=== PATIENT | female | born 1945 | race Caucasian/White ===

== ENCOUNTER 2019-06-23 06:55 | Observation (INO) ==
--- NOTE | 2019-06-08 09:30 | PAT Medication Instructions ---
Medication Instructions Date of Service June 08, 2019 Home Medications acetaminophen 325 mg capsule 650 mg PO Q6H PRN amlodipine 10 mg tablet 10 mg PO DAILY bisacodyl 10 mg rectal suppository 10 mg GA DAILY PRN ezetimibe 10 mg tablet 10 mg PO DAILY guaifenesin 600 mg tablet, extended release 12 hr 600 mg PO BID hydrochlorothiazide 12.5 mg capsule 12.5 mg PO DAILY hydrocortisone acetate 25 mg rectal suppository 25 mg GA QID PRN ipratropium-albuterol 0.5 mg-3 mg(2.5 mg base)/3 mL nebulization soln 3 ml INH QID ketoconazole 2 % shampoo 1 appln TOP .2 times weekly lanolin szkxmwz-yr-p.pet-ceres 1 appln TOP BID losartan 25 mg tablet 25 mg PO DAILY magnesium hydroxide 400 mg/5 mL oral suspension 30 ml PO DAILY PRN melatonin 3 mg capsule 3 mg PO HS PRN nystatin-triamcinolone 100,000 unit/g-0.1 % topical cream 1 appln TOP BID oxycodone 5 mg tablet 5 mg PO Q4H PRN sodium phosphates 19 gram-7 gram/118 mL enema 118 ml GA DAILY PRN atenolol 100 mg PO DAILY cholecalciferol (vitamin D3) 400 unit PO DAILY STOP taking 24 hours before surgery ketoconazole 2 % shampoo 1 appln TOP .2 times weekly lanolin wqqrwfw-xj-k.pet-ceres 1 appln TOP BID nystatin-triamcinolone 100,000 unit/g-0.1 % topical cream 1 appln TOP BID DO NOT take the morning of surgery bisacodyl 10 mg rectal suppository 10 mg GA DAILY PRN guaifenesin 600 mg tablet, extended release 12 hr 600 mg PO BID hydrochlorothiazide 12.5 mg capsule 12.5 mg PO DAILY hydrocortisone acetate 25 mg rectal suppository 25 mg GA QID PRN losartan 25 mg tablet 25 mg PO DAILY magnesium hydroxide 400 mg/5 mL oral suspension 30 ml PO DAILY PRN sodium phosphates 19 gram-7 gram/118 mL enema 118 ml GA DAILY PRN cholecalciferol (vitamin D3) 400 unit PO DAILY Take morning of surgery With a small sip of water, OTHERWISE NOTHING TO EAT OR DRINK AFTER MIDNIGHT: acetaminophen 325 mg capsule 650 mg PO Q6H PRN (if needed, may be taken up to four hours before surgery) amlodipine 10 mg tablet 10 mg PO DAILY ezetimibe 10 mg tablet 10 mg PO DAILY ipratropium-albuterol 0.5 mg-3 mg(2.5 mg base)/3 mL nebulization soln 3 ml INH QID oxycodone 5 mg tablet 5 mg PO Q4H PRN (if needed, may be taken up to four hours before surgery) atenolol 100 mg PO DAILY Take evening before surgery acetaminophen 325 mg capsule 650 mg PO Q6H PRN (if needed) bisacodyl 10 mg rectal suppository 10 mg GA DAILY PRN (if needed) guaifenesin 600 mg tablet, extended release 12 hr 600 mg PO BID ipratropium-albuterol 0.5 mg-3 mg(2.5 mg base)/3 mL nebulization soln 3 ml INH QID magnesium hydroxide 400 mg/5 mL oral suspension 30 ml PO DAILY PRN (if needed) melatonin 3 mg capsule 3 mg PO HS PRN (if needed) oxycodone 5 mg tablet 5 mg PO Q4H PRN (if needed) sodium phosphates 19 gram-7 gram/118 mL enema 118 ml GA DAILY PRN (if needed) Other Notes If you have any questions please call us at [phone] or [phone] or [phone] or [phone]
--- NOTE | 2019-06-08 13:27 | Anesthesiology Consultation ---
Date of Service June 08, 2019 Assessment & Plan (1) Encounter for pre-operative examination: Chart Review Chart Review: Acceptable Risk for Surgery and Patient NOT seen in Pre Admission Testing Consults Requested none History Surgery Operation Date: 06/23/19 07:00 Proposed Procedures p Gastrostomy Feeding Tube Insertion - Jef Irizarry MD Height/Weight Height: 5 ft 3 in Weight: 65.771 kg Allergies Allergy/AdvReac Type Severity Reaction Status Date / Time blueberry Allergy Unknown Verified 06/08/19 07:47 chocolate flavor Allergy Unknown Verified 06/08/19 07:47 strawberry Allergy Unknown Verified 06/08/19 07:47 tomato Allergy Unknown Verified 06/08/19 07:47 aspirin Allergy Rash Verified 06/08/19 07:47 codeine Allergy Rash Verified 06/08/19 07:47 morphine Allergy Nausea Verified 06/08/19 07:47 simvastatin Allergy Rash Verified 06/08/19 07:47 Medications Home Medications Medication Instructions Recorded Confirmed Last Taken acetaminophen 325 mg capsule 650 mg PO Q6H PRN cap 04/07/19 06/08/19 Unknown amlodipine 10 mg tablet 10 mg PO DAILY 04/07/19 06/08/19 Unknown bisacodyl 10 mg rectal suppository 10 mg CA DAILY PRN 04/07/19 06/08/19 Unknown ezetimibe 10 mg tablet 10 mg PO DAILY 04/07/19 06/08/19 Unknown guaifenesin 600 mg tablet, 600 mg PO BID 04/07/19 06/08/19 Unknown extended release 12 hr hydrochlorothiazide 12.5 mg capsule 12.5 mg PO DAILY 04/07/19 06/08/19 Unknown hydrocortisone acetate 25 mg 25 mg CA QID PRN ea 04/07/19 06/08/19 Unknown rectal suppository ipratropium-albuterol 0.5 mg-3 3 ml INH QID 04/07/19 06/08/19 Unknown mg(2.5 mg base)/3 mL nebulization soln ketoconazole 2 % shampoo 1 appln TOP .2 times weekly ml 04/07/19 06/08/19 Unknown lanolin widtsbi-ji-k.pet-ceres 1 appln TOP BID gm 04/07/19 06/08/19 Unknown losartan 25 mg tablet 25 mg PO DAILY 04/07/19 06/08/19 Unknown magnesium hydroxide 400 mg/5 mL 30 ml PO DAILY PRN ml 04/07/19 06/08/19 Unknown oral suspension melatonin 3 mg capsule 3 mg PO HS PRN 04/07/19 06/08/19 Unknown nystatin-triamcinolone 100,000 1 appln TOP BID 04/07/19 06/08/19 Unknown unit/g-0.1 % topical cream oxycodone 5 mg tablet 5 mg PO Q4H PRN tab 04/07/19 06/08/19 Unknown sodium phosphates 19 gram-7 118 ml CA DAILY PRN 04/07/19 06/08/19 Unknown gram/118 mL enema atenolol 100 mg PO DAILY 06/08/19 06/08/19 Unknown cholecalciferol (vitamin D3) 400 unit PO DAILY 06/08/19 06/08/19 Unknown [Vitamin D3] Past Medical History Medical History Atherosclerosis (Chronic) Of leg with intermittent claudication Atrial fibrillation (Chronic) post op atrial fib with runs of v tach per notes Chronic anticoagulation (Chronic) Chronic kidney disease (Chronic) Dyslipidemia (Chronic) Gout Hypertension (Chronic) Laryngeal cancer (Chronic) per note, will start chem and radiation [facility] resident [facility] Peripheral vascular disease (Chronic) Pseudoaneurysm (Chronic) Right lower abd; Psoriasis (Chronic) Past Family History Family History Mother , 82yo Stroke Hypertension Diabetes Father , 68yo Stroke Hypertension Diabetes Brother Cardiac disease Brother No problems noted. Brother No problems noted. Sister of unknown cause Sister Hypertension Diabetes Sister Hypertension Diabetes Son Suicide Son No problems noted. 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 H/O tracheostomy (Chronic) 03/09/19 #6 Shiloy inner cannula --- uncuffed per [facility] uses oxygen 3l/min H/O tubal ligation (Resolved) History of appendectomy (Resolved) History of excision of lesion (Resolved) Right breast - benign History of laryngoscopy (Resolved) Direct laryngoscopy, biopsy of mass, and excision of mass on 03/09/19 History of right-sided carotid endarterectomy (Resolved) Hx of cataract surgery (Resolved) Bilateral S/P femoral-popliteal bypass surgery (Resolved) Bilaterally x 3 or 4 times; S/P RANULFO (total abdominal hysterectomy) (Resolved) including partial vaginectomy Social History Smoking Status: Former smoker tobacco type: cigarettes Smoking cigarettes per day: Quit 20 yrs ago;1.5 PPD x 30 yrs Smoking End Date: quit 2001 Hx Alcohol Use: No Hx Substance Use: No substance use type: does not use Testing Laboratory Results Laboratory Tests 04/15/19 04/17/19 05/26/19 07:10 01:40 05:50 WBC 12.97 H Hgb 10.5 L Hct 32.5 L Plt Count 147 PT 23.6 H INR 2.5 H Sodium 137 Potassium 3.7 Chloride 105 Carbon Dioxide 21 BUN 17 Creatinine 1.31 H Glucose 106 H Electrocardiogram Date: 03/12/19 Findings: + NSR @ and + NSST changes Echocardiogram Date: 03/17/19 EF: 65 LV Function: normal
[~2019-06-23 06:55] MED LIST: CEFAZOLIN 2000MG 2,000 MG/15 ML SYR IV SCH; LR 15ML/HR IV SCH
[2019-06-23 07:42] LABS: INR 1.1 (0.9-1.1); Partial Thromboplastin Time 27.4 Seconds (21.0-31.0); Prothrombin Time 11.2 Seconds (9.0-12.0)
[2019-06-23] MEDS ORDERED: ATROPINE SULFATE 0.1 MG/ML 10ML SYR IV PRN (08:28)
[2019-06-23] MEDS ORDERED: ONDANSETRON INJ 2 MG/ML 2 ML VIAL IV PRN ×2 (08:28→10:54)
[2019-06-23] MEDS ORDERED: LABETALOL HCL IV 5 MG/ML 20ML IV PRN (08:28)
[2019-06-23] MEDS ORDERED: fentaNYL citrate 100 MCG/2 ML VIAL IV PRN (08:28)
[2019-06-23] MEDS ORDERED: fentaNYL citrate 100 MCG/2 ML VIAL ONE (08:48)
[2019-06-23] MEDS ORDERED: BUPIVACAINE 0.5 % 5 MG/1 ML MPF 30ML VIAL ONE (09:01)
[2019-06-23] MEDS ORDERED: BACITRACIN OINT 15 GM TUBE ONE (09:01)
[2019-06-23] MEDS ORDERED: LIDOCAINE HCL 1% 20 ML VIAL ONE (09:01)
[2019-06-23] MEDS ORDERED: HEPARIN 100 UNIT/ML 5ML FLUSH ONE (09:01)
[2019-06-23] MEDS ORDERED: CEFAZOLIN 2000MG 2,000 MG/15 ML SYR IV ONE (09:07)
--- NOTE | 2019-06-23 09:07 | History & Physical Bridge Note ---
Date of Service June 23, 2019 History & Physical Bridge Note I have examined the patient, reviewed the History & Physical and in the interval since the performance of the History & Physical I have noted the following changes of clinical significance: no changes noted
[2019-06-23] MEDS ORDERED: NEOSTIGMINE METHYLSULFATE 5 MG/5 ML SYR ONE (10:06)
[2019-06-23] MEDS ORDERED: PROPOFOL IV EMULSION 10 MG/ML 20 ML VIAL IV ONE (10:06)
[2019-06-23] MEDS ORDERED: PHENYLEPHRINE 100MCG/ML 5ML SYR ONE (10:06)
[2019-06-23] MEDS ORDERED: ONDANSETRON INJ 2 MG/ML 2 ML VIAL ONE (10:06)
[2019-06-23] MEDS ORDERED: GLYCOPYRROLATE 0.2 MG/ML VIAL ONE (10:06)
[2019-06-23] MEDS ORDERED: ROCURONIUM BROMIDE 10 MG/ML 5 ML VIAL ONE (10:06)
[2019-06-23] MEDS ORDERED: LIDOCAINE HCL 2% 2 ML VIAL/AMP(20MG/ML) INFIL ONE (10:06)
--- NOTE | 2019-06-23 10:48 | Post Operative Brief Note ---
Immediate Post Op Note v1 Date of Surgery June 23, 2019 Pre & Post Diagnosis Operation Date: 06/23/19 08:50 Pre-Op Diagnosis: Laryngeal Cancer Post-Op Diagnosis: Laryngeal Cancer I identified the patient and participated in the time-out.: Yes Procedure Operation Date: 06/23/19 08:50 Actual Procedures p Gastrostomy Feeding Tube Insertion,(Not Applicable) - Jef Irizarry MD s tunneled Port Insertion(Left internal jugular vein) - Jef Irizarry MD Surgeon Jef Irizarry MD Career Services Director FERNY Gil Estimated Blood Loss 10 Findings Consistent with Post-Op Diagnosis Fluids 600ml Specimens none Anesthesia Type General Complications none Disposition Accompanied Patient To Recovery: Yes Disposition: Recovery Room Overlapping Procedure I was immediately available: during the entire case.
[2019-06-23] MEDS ORDERED: HYDROmorphone INJ 0.5 MG/0.5 ML SYR IV PRN ×2 (10:58→15:30)
[2019-06-23] MEDS ORDERED: OXYCODONE/ACETAMINOPHEN 5mg/325mg TAB PO PRN (10:58)
[2019-06-23] MEDS ORDERED: SODIUM CHLORIDE 0.9% 1000ML 1,000 ML IV SCH (11:00)
--- NOTE | 2019-06-23 11:45 | Anesthesiology Progress Note ---
Date of Service June 23, 2019 Anesthesia Post Procedure Vital Signs Vital Signs: Temp Pulse Pulse Resp BP Pulse Ox 06/23/19 11:40 84 15 121/81 97 06/23/19 11:30 85 19 129/71 92 06/23/19 11:20 86 19 133/64 95 06/23/19 11:12 36.0 C L 89 17 138/73 98 06/23/19 07:24 36.6 C 80 131/60 100 Pain Intensity Abdomen: Pain Intensity: 2 Transfer of Care Handoff Completed per policy Notes Mental Status: alert / awake / arousable Patient Amnestic to Procedure: Yes Nausea / Vomiting: adequately controlled Pain: adequately controlled Airway Patency, RR, SpO2: stable & adequate BP & HR: stable & adequate Hydration State: stable & adequate Anesthetic Complications: no major complications apparent
--- NOTE | 2019-06-23 12:08 | XRay Report ---
XR chest 1V portable HISTORY: Port Placement COMPARISON: None. FINDINGS: A left jugular Port-A-Cath terminates within the expected location of the proximal SVC. A t racheostomy tube appears in good position. The heart is normal in size. Emphysema and mild interstiti al thickening. Suspect trace bilateral pleural effusions. No pneumothorax. IMPRESSION: 1. Left jugular Port-A-Cath terminates at the proximal SVC. 2. No pneumothorax. 3. Tracheostomy tube appears in good position. 4. Emphysema and mild interstitial thickening. ACT 112: Negative or not required by law. Electronically signed by: Eliseo Shaikh M.D. 06/23/2019 12:07 PM
--- NOTE | 2019-06-23 12:37 | Operative Report ---
DATE OF OPERATION: 06/23/2019 PREOPERATIVE DIAGNOSIS: Laryngeal cancer. POSTOPERATIVE DIAGNOSIS: Laryngeal cancer. OPERATIVE PROCEDURE: Tunneled port catheter insertion in the left internal jugular vein, gastrostomy feeding tube insertion. SURGEON: Jef Irizarry MD. DIRECTOR PART: Stefanie Oquendo PA-C. ANESTHESIA: General. ESTIMATED BLOOD LOSS: About 10 mL. FINDINGS: Patent left internal jugular vein. COMPLICATIONS: None. INDICATIONS FOR THE PROCEDURE: This is a 74-year-old female who has a new diagnosis of laryngeal cancer. The patient is required to do the port insertion and gastrostomy feeding tube insertion. I did talk to the patient about the benefits, risks, and alternate procedure. I indicated the risks may include but not limited to such as bleeding, infection, blood clot, dysfunction of the catheter, injury to other organs. The patient understands and she signed informed consent, I answered all questions. DETAILS OF PROCEDURE: We brought the patient to the OR, put the patient in the supine position. The patient received SCD on bilateral legs to prevent DVT. Also, patient received 2 grams of Ancef IV for prophylactic antibiotic. The patient received general anesthesia without difficulty. The left-sided neck and left-sided upper chest and abdomen were prepped and draped in routine sterile fashion. After timeout, I used the ultrasound, located the left internal jugular vein. I used a 16 gauge needle to puncture the left internal jugular vein, easy blood returned, passed the wire and removed the needle. Then, we used fluoro to confirm the wire location in the superior vena cava, then I injected local anesthesia on the left side of the upper chest by using 1% lidocaine mixed with 0.5% Marcaine. Then, I made about a 2 cm incision on the left side of the upper chest with dissection in the subcutaneous layer and created a pouch. Hemostasis was obtained. Then, we passed the catheter through the left side of the upper chest to reach the left side of the neck. Then, we sized the catheter, connected to the port. Then, we passed the dilator and sheath through the wire. Then, we removed the wire, removed the dilator leaving the sheath in. Then, we passed the catheter through this sheath. Then, we removed the sheath and again we used fluoro to confirm the tip of the catheter located at the junction between the right atrium and superior vena cava, then using 2-0 Prolene fixed the port on the left side of the chest wall at 3 points. Hemostasis was obtained. I closed the subcutaneous layer incision by using 2-0 Vicryl continuous running, closed skin by using 4-0 Vicryl continuous running. Then, we used needle to puncture the port, easy blood returned and injected 10 mL of heparinized saline. Then, we put the dressing on. Then, we moved onto the abdomen. I made about 8 cm incision through the upper abdomen, midline incision, and reached the fascia, opened the fascia and opened the peritoneum getting in the abdomen without difficulty and then reached the base of the stomach. Then, using 2-0 Vicryl, put 2 strings on the stomach. Then, we made another incision on the left side of the upper abdomen and passed the 18-Anguillan Taylor catheter through the abdominal wall. At this moment, we used the Bovie to make a small opening on the stomach. Then we passed the Taylor catheter into the stomach and then we tied with 2 string sutures of 2-0 Vicryl, tied nicely, no tension, no leak. Then we inflated the Taylor catheter balloon, feeding tube balloon 10 mL with normal saline. Then I used 2-0 Prolene, sutured the stomach to the abdominal wall interruptedly x3 around the feeding tube. The feeding tube was set nicely, no tension. Hemostasis was obtained. Now closed the fascial layer by using #1 PDS continuous running, closed subcutaneous layer by using 2-0 Vicryl continuous running, closed skin by using staple. Then we put the dressing on. The patient tolerated the procedure well. All instrument, needle and sponge count were correct x2 at the end of the case. The patient was transferred to recovery room in stable condition. After the procedure, I did talk to the patient and family member about the OR finding and the procedure we did, they understand. The patient will stay in the hospital overnight. They agree. I attest to the content of the Intraoperative Record and any orders documented therein. Any exception s are noted below.
[2019-06-23] MEDS ORDERED: ALBUT/IPRATROP 3MG/0.5MG NEB 3 ML VIAL NEB PRN (15:26)
[2019-06-23] MEDS ORDERED: HydrALAZINE HCL 20 MG/ML VIAL IV PRN (15:28)
[2019-06-23] MEDS ORDERED: ACETAMINOPHEN 1,000 MG/100 ML VIAL IV PRN (15:30)
[2019-06-23] MEDS ORDERED: DiphenhydrAMINE HCL 50 MG/ML VIAL IV PRN (15:30)
--- NOTE | 2019-06-23 15:36 | Internal Medicine Consult Note ---
Date of Consultation June 23, 2019 Assessment & Plan (1) Malignant neoplasm of larynx: Pre-Op Diagnosis of Laryngeal Cancer Post-operative state -Operation Date: 06/23/[address] Irizarry for Gastrostomy Feeding Tube Insertion and tunneled Port Insertion(Left internal jugular vein) -currently is NPO -pain medications ordered as IV acetaminophen for pain or fever, IV dilaudid for severe pain -nebulizer treatments if shortness of breath or wheezing -PT/OT evaluations requested, case management discharge planning requested -General surgery is primary team in patient's discharge disposition; hospitalist medicine to follow as consult service Hypertension -holding off home oral blood pressure medications of losartan, atenolol, and HCTZ -switch to IV hydralazine prn if systolic blood pressure above 160 -depending on renal function, can switch to IV enalprilat -hold off ezetimibe for now Chronic Kidney Disease stage III -monitor renal function DVT prophylaxis: Lovenox History of Present Illness Reason for Consultation: "co-manage" a post-operative patient with cancer Requesting Physician: Dr. 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 On 06/23/2019, patient is s/p Gastrostomy Feeding Tube Insertion and tunneled Port Insertion(Left internal jugular vein). Patient also has tracheoostomy from prior. If it difficult for her to talk. But she is alert and able to phonate words softly. Patient is able to verbalize and pantomime some discomfort of the abdomen. Otherwise, she is not in acute distress. Patient reports allergy reaction of hives but does not know what are the triggers. Family History: hypertension of mother and father Allergies Allergy/AdvReac Type Severity Reaction Status Date / Time blueberry Allergy Unknown Verified 06/23/19 07:21 chocolate flavor Allergy Unknown Verified 06/23/19 07:21 strawberry Allergy Unknown Verified 06/23/19 07:21 tomato Allergy Unknown Verified 06/23/19 07:21 aspirin Allergy Rash Verified 06/23/19 07:21 codeine Allergy Rash Verified 06/23/19 07:21 morphine Allergy Nausea Verified 06/23/19 07:21 simvastatin Allergy Rash Verified 06/23/19 07:21 Home Medications Home Medications Medication Instructions Recorded Confirmed Type acetaminophen 325 mg capsule 650 mg PO Q6H PRN cap 04/07/19 06/23/19 History amlodipine 10 mg tablet 10 mg PO DAILY 04/07/19 06/23/19 History bisacodyl 10 mg rectal suppository 10 mg PA DAILY PRN 04/07/19 06/23/19 History ezetimibe 10 mg tablet 10 mg PO DAILY 04/07/19 06/23/19 History guaifenesin 600 mg tablet, 600 mg PO BID 04/07/19 06/23/19 History extended release 12 hr hydrochlorothiazide 12.5 mg capsule 12.5 mg PO DAILY 04/07/19 06/23/19 History ipratropium 0.5 mg-albuterol 3 mg 3 ml INH Q2H PRN 04/07/19 06/23/19 History (2.5 mg base)/3 mL nebulization soln ketoconazole 2 % shampoo 1 appln TOP .2 times weekly ml 04/07/19 06/23/19 History losartan 25 mg tablet 25 mg PO DAILY 04/07/19 06/23/19 History magnesium hydroxide 400 mg/5 mL 30 ml PO DAILY PRN ml 04/07/19 06/23/19 History oral suspension melatonin 3 mg capsule 3 mg PO HS 04/07/19 06/23/19 History oxycodone 5 mg tablet 5 mg PO Q4H PRN tab 04/07/19 06/23/19 History atenolol 100 mg PO DAILY 06/08/19 06/23/19 History cholecalciferol (vitamin D3) 400 unit PO DAILY 06/08/19 06/23/19 History [Vitamin D3] ipratropium-albuterol 3 ml INHALATION QID 06/23/19 06/23/19 History phenyleph-min oil-petrolatum 1 applic PA [facility] PRN 06/23/19 06/23/19 History [Preparation H] Patient History Medical History Atherosclerosis (Chronic) Of leg with intermittent claudication Atrial fibrillation (Chronic) post op atrial fib with runs of v tach per notes Chronic anticoagulation (Chronic) Chronic kidney disease (Chronic) Dyslipidemia (Chronic) Gout Hypertension (Chronic) Laryngeal cancer (Chronic) per note, will start chem and radiation [facility] resident [facility] Peripheral vascular disease (Chronic) Pseudoaneurysm (Chronic) Right lower abd; Psoriasis (Chronic) Surgical History 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 H/O tracheostomy (Chronic) 03/09/19 #6 Shiloy inner cannula --- uncuffed per residential uses oxygen 3l/min H/O tubal ligation (Resolved) History of appendectomy (Resolved) History of excision of lesion (Resolved) Right breast - benign History of laryngoscopy (Resolved) Direct laryngoscopy, biopsy of mass, and excision of mass on 03/09/19 History of right-sided carotid endarterectomy (Resolved) Hx of cataract surgery (Resolved) Bilateral S/P femoral-popliteal bypass surgery (Resolved) Bilaterally x 3 or 4 times; S/P RANULFO (total abdominal hysterectomy) (Resolved) including partial vaginectomy Family History Mother , 82yo Stroke Hypertension Diabetes Father , 68yo Stroke Hypertension Diabetes Brother Cardiac disease Brother No problems noted. Brother No problems noted. Sister of unknown cause Sister Hypertension Diabetes Sister Hypertension Diabetes Son Suicide Son No problems noted. Daughter Unknown family medical history Daughter MVA (motor vehicle accident) Social History (Updated 04/07/19 @ 14:13 by Татьяна Anthony RN) Preferred Language: Divehi Communication Ability: Impaired Visual Impairment: No Limitations Hearing Ability: Normal Motor Vehicle Light Assembler Required: No Beliefs That Will Affect Care: None marital status: Current Living Situation: Personal Care Facility Current Living Situation Comment: [facility] current occupational status: retired current occupation: Housewife; Other Information That Helps Us Care for You: No Feels Safe at Home: Yes Safety Concerns: Feels Safe At This Time Smoking Status: Former smoker Tobacco Type: cigarettes ; Cigarettes Per Day: Quit 20 yrs ago;1.5 PPD x 30 yrs ; Smoking End Date: quit 2001 ; Second Hand Exposure: No ; Tobacco Cessation Education Requested by Patient: No Hx Alcohol Use: No Hx Substance Use: No caffeine: No during the past year weight has: remained stable Review of Systems Review of Systems: All systems reviewed & are unremarkable except as noted in HPI & below Physical Exam Constitutional: cooperative Eyes: PERRL, conjunctivae normal, anicteric sclerae EOM intact bilaterally ENMT: external ear and nose normal, oropharynx normal Neck: has tracheostomy Respiratory: normal respiratory effort Cardiovascular: Rate/Rhythm: regular rate and regular rhythm Chest (Breasts): Chest: + vascular access device or port Gastrointestinal (Abdomen): has dressing over abdomen Neurologic: PERRL, EOMI, accommodation nl, no face palsy, no dysarthria Psychiatric: Orientation: alert and cooperative Results & Data Vital Signs (Past 12 Hours) Vital Signs Temp Pulse Pulse Resp BP Pulse Ox 06/23/19 14:16 36.7 C 87 18 139/64 99 06/23/19 13:29 88 18 120/67 100 06/23/19 12:55 36.5 C 83 16 147/71 H 100 06/23/19 12:25 36.9 C 75 12 130/71 100 06/23/19 12:00 80 19 140/81 100 06/23/19 11:50 36.2 C L 75 20 152/56 H 100 06/23/19 11:40 84 15 121/81 97 06/23/19 11:30 85 19 129/71 92 06/23/19 11:20 86 19 133/64 95 06/23/19 11:12 36.0 C L 89 17 138/73 98 06/23/19 07:24 36.6 C 80 131/60 100
[2019-06-23] MEDS ORDERED: bisacodyL 10 MG SUPP PR PRN (15:45)
[2019-06-23 15:51] LABS: Creatinine Clr Calc Pharmacy 33.1 ml/min; Est GFR (African American) 43.9; Est GFR (Non-African American) 37.9
[2019-06-23] MEDS: LACTATED RINGER'S 1,000 ML IV SCH (16:08)
[2019-06-23] MEDS ORDERED: ENOXAPARIN INJ 40 MG/0.4 ML SYR SQ SCH (16:30)
[2019-06-23] MEDS: CEFAZOLIN 1000MG 1,000 MG/7.5 ML SYR IV SCH (18:02)
[2019-06-23] MEDS: ALBUT/IPRATROP 3MG/0.5MG NEB 3 ML VIAL NEB SCH (19:24)
[2019-06-24] MEDS: CEFAZOLIN 1000MG 1,000 MG/7.5 ML SYR IV SCH ×3 (00:11→12:09)
[2019-06-24] MEDS: LACTATED RINGER'S 1,000 ML IV SCH ×2 (00:12→04:32)
[2019-06-24 06:33] LABS: Basophils # (auto) 0.01 K/uL (0-0.2); Basophils % (auto) 0.1 %; Eosinophils % (auto) 9.8 %; Hemoglobin 11.7 g/dL (12.0-16.0); Immature Granulocytes # (auto) 0.02 K/uL (0.00-0.02); Immature Granulocytes % (auto) 0.2 %; Lymphocytes # (auto) 0.57 K/uL (1.2-3.4); Lymphocytes % (auto) 5.1 %; Mean Corpuscular Hemoglobin 32.1 pg (25-34); Mean Corpuscular Hgb Conc 33.4 g/dL (32-36); Mean Corpuscular Volume 95.9 fL (80-100); Mean Platelet Volume 9.4 fL (7.4-10.4); Monocytes # (auto) 0.63 K/uL (0.11-0.59); Monocytes % (auto) 5.6 %; Neutrophils # (auto) 8.84 K/uL (1.4-6.5); Neutrophils % (auto) 79.2 %; Platelet Count 143 K/uL (130-400); RDW Coefficient of Variation 13.7 % (11.5-14.5); RDW Standard Deviation 48.3 fL (36.4-46.3); Red Blood Count 3.65 M/uL (4.2-5.4); White Blood Count 11.17 K/uL (4.8-10.8)
[2019-06-24 07:02] LABS: Albumin Level 2.9 gm/dl (3.4-5.0); BUN Creatinine Ratio 14.8 (10-20); Calcium 9.3 mg/dl (8.5-10.1); Creatinine Clr Calc Pharmacy 37.5 ml/min; Potassium 3.7 mmol/L (3.5-5.1)
[2019-06-24 07:04] LABS: Albumin Globulin Ratio 0.7 (0.9-2); Bilirubin,Total 0.4 mg/dl (0.2-1); Globulin 4.4 gm/dl (2.5-4.0); Total Protein 7.3 gm/dl (6.4-8.2)
[2019-06-24] MEDS: ALBUT/IPRATROP 3MG/0.5MG NEB 3 ML VIAL NEB SCH ×2 (07:11→11:21)
--- NOTE | 2019-06-24 09:02 | Hospitalist Progress Note ---
Date of Service June 24, 2019 Assessment & Plan (1) Malignant neoplasm of larynx: Pre-Op Diagnosis of Laryngeal Cancer Post-operative state Presence of Tracheostomy -Operation Date: 06/23/[address] Irizarry for Gastrostomy Feeding Tube Insertion and tunneled Port Insertion(Left internal jugular vein) -pain medications ordered as IV acetaminophen for pain or fever, IV dilaudid for severe pain -nebulizer treatments if shortness of breath or wheezing -PT/OT evaluations requested, case management discharge planning requested -General surgery is primary team in patient's discharge disposition; hospitalist medicine to follow as consult service -06/24/18: Patient seen and examined this AM. Patient had food brought to bedside. She reported that she had not eaten dinner. Discussed with patient and nurse at bedside that if she tolerates oral meals, then medications can be transitioned to oral instead of IV. Patient reports some abdominal pain when she coughs. She reports not passing flatus yet, no bowel movements yet. She reports she has been able to urinate. No other issues on review of systems. Hospitalist also discussed with case management to assist general surgery service with discharge planning needs. healthcare advisory services manager notes that patient is originally from [facility] Hypertension -holding off home oral blood pressure medications of losartan, atenolol, and HCTZ -switch to IV hydralazine prn if systolic blood pressure above 160 -depending on renal function, can switch to IV enalprilat -hold off ezetimibe for now -can switch to oral medications if tolerating diet Chronic Kidney Disease stage III -monitor renal function DVT prophylaxis: Lovenox Subjective Patient seen and examined this AM. Patient had food brought to bedside. She reported that she had not eaten dinner. Discussed with patient and nurse at bedside that if she tolerates oral meals, then medications can be transitioned to oral instead of IV. Patient reports some abdominal pain when she coughs. She reports not passing flatus yet, no bowel movements yet. She reports she has been able to urinate. No other issues on review of systems. Hospitalist also discussed with case management to assist general surgery service with discharge planning needs. healthcare advisory services manager notes that patient is originally from [facility]. Review of Systems Review of Systems: All systems reviewed & are unremarkable except as noted in HPI & below Physical Exam Constitutional: cooperative Eyes: PERRL, conjunctivae normal, anicteric sclerae EOM intact bilaterally ENMT: external ear and nose normal, oropharynx normal Neck: oxygen via tracheostomy Respiratory: normal respiratory effort Cardiovascular: Rate/Rhythm: regular rate and regular rhythm Chest (Breasts): Chest: + vascular access device or port Musculoskeletal: Head/Neck/Chest: normocephalic and head atraumatic Neurologic: PERRL, EOMI, accommodation nl, no face palsy, no dysarthria Psychiatric: Orientation: alert and cooperative Results & Data Vital Signs (Past 12 Hours) Vital Signs Temp Pulse Pulse Resp BP Pulse Ox 06/24/19 07:27 36.9 C 91 H 18 135/70 94 06/24/19 07:11 73 18 97 06/24/19 04:00 37.4 C 92 H 20 144/69 H 96 06/24/19 00:05 37.3 C 88 18 117/67 96
[2019-06-24 11:33] VITALS: O2SAT 98
[2019-06-24 12:06] VITALS: BP 131/61; TEMP 98.8
--- NOTE | 2019-06-24 12:25 | Surgery Progress Note ---
Date of Service doing fine, tolerated diet, good control incision pain, June 24, 2019 Assessment & Plan (1) Encounter for pre-operative examination: doing fine, [facility] 1 week [phone] (2) Malignant neoplasm of larynx: Physical Exam Constitutional: WD/WN, vitals as above Respiratory: normal respiratory effort, lungs clear to auscultation Cardiovascular: RRR, no murmur, no edema Gastrointestinal (Abdomen): Percussion/Palpation: abdomen soft mild tenderness at incision site, no rebound pain BS +, incision intact, Neurologic: awake Psychiatric: Orientation: alert and oriented x 3 Results & Data Vital Signs (Past 12 Hours) Vital Signs Temp Pulse Pulse Resp BP Pulse Ox 06/24/19 12:05 37.1 C 98 H 18 131/61 98 06/24/19 11:22 94 H 16 98 06/24/19 07:27 36.9 C 91 H 18 135/70 94 06/24/19 07:11 73 18 97 06/24/19 04:00 37.4 C 92 H 20 144/69 H 96 Laboratory Results Abnormal lab results 06/23/19 06/23/19 06/24/19 Range/Units 13:50 15:10 06:04 WBC 11.17 H (4.8-10.8) K/uL RBC 3.65 L (4.2-5.4) M/uL Hgb 11.7 L (12.0-16.0) g/dL Hct 35.0 L (37-47) % RDW Std Deviation 48.3 H (36.4-46.3) fL Neut # (Auto) 8.84 H (1.4-6.5) K/uL Lymph # (Auto) 0.57 L (1.2-3.4) K/uL [place] # (Auto) 0.63 H (0.11-0.59) K/uL Eos # (Auto) 1.10 H (0-0.5) K/uL Creatinine 1.37 H (0.6-1.2) mg/dl Glucose (70-99) mg/dl AST (15-37) U/L Alkaline Phosphatase (45-117) U/L Albumin (3.4-5.0) gm/dl Globulin (2.5-4.0) gm/dl Albumin/Globulin Ratio (0.9-2) Nasal Screen MRSA (PCR) Positive A (Negative) 06/24/19 Range/Units 06:04 WBC (4.8-10.8) K/uL RBC (4.2-5.4) M/uL Hgb (12.0-16.0) g/dL Hct (37-47) % RDW Std Deviation (36.4-46.3) fL Neut # (Auto) (1.4-6.5) K/uL Lymph # (Auto) (1.2-3.4) K/uL [place] # (Auto) (0.11-0.59) K/uL Eos # (Auto) (0-0.5) K/uL Creatinine 1.21 H (0.6-1.2) mg/dl Glucose 107 H (70-99) mg/dl AST 13 L (15-37) U/L Alkaline Phosphatase 44 L (45-117) U/L Albumin 2.9 L (3.4-5.0) gm/dl Globulin 4.4 H (2.5-4.0) gm/dl Albumin/Globulin Ratio 0.7 L (0.9-2) Nasal Screen MRSA (PCR) (Negative)
[2019-06-24 13:57] VITALS: PULSE 92
--- NOTE | 2019-06-25 02:49 | Discharge Summary ---
ADMITTING DIAGNOSIS: Laryngeal cancer. DISCHARGE DIAGNOSIS: Laryngeal cancer. OPERATION: Port insertion on the left internal jugular vein. Gastrostomy feeding tube insertion. SURGEON: Jef Irizarry MD DETAILS OF DISCHARGE SUMMARY: This is a 74-year-old female who has a new diagnosis of laryngeal cancer. The patient is required to do the port insertion and open gastrostomy feeding tube insertion. The patient went to have the surgery and the patient tolerated the surgery well and after procedure the patient was transferred to recovery room and later on transferred to regular floor. The patient is doing fine. This morning, the patient had a regular diet. The patient tolerated and no significant abdominal pain, no nausea, no vomiting. No leak from around the feeding tube. PHYSICAL EXAMINATION: VITAL SIGNS: Temperature is 37.1, heart rate 98, respiratory rate 18, blood pressure 131/61, O2 saturation 98% on room air. GENERAL: The patient is alert, awake, oriented x3. HEENT: Within normal limitation. NECK: Tracheostomy is working well. NEUROLOGIC: Exam intact. CHEST: Bilateral lung sounds clear. HEART: Normal S1, S2. No murmur. ABDOMEN: Soft. The feeding tube is intact. No leak around the feeding tube. All incisions intact. No drainage, no redness. Bowel sounds positive. EXTREMITIES: No edema. The patient wanted to go back to snf. I gave patient postop care instructions and also the patient's son is at bedside, they understand. I will follow up the patient in 1 week in my office. Also instructed that if the patient developed any severe abdominal pain, temperature, the patient should come back to hospital ER, they understand.
== END 2019-06-24 14:20 ==
LOC: ASU 06:55 → 3N 06:55

== ENCOUNTER 2019-08-05 08:52 | Inpatient (IN) ==
--- NOTE | 2019-08-03 08:42 | History & Physical Report ---
Date of Service August 03, 2019 date of surgery: 08-05-19 Assessment & Plan (1) Closed right ankle fracture: Further care discussed with patient and will proceed with ORIF right ankle bimalleolar fracture at [facility] on 08/05/19. Will return back to [facility] upon discharge from the hospital. remain in splint, RICE until surgery, continue NWB. Patient will have follow up appointment in our office two weeks post op for staple/suture removal and re-evaluation. Patient otherwise has no other questions or concerns. She will change her anticoagulation from coumadin to Lovenox until surgery time then bridge back to coumadin post operatively. History of Present Illness Chief Complaint: right ankle fracture Ms Palmer is a 74 year old female who complains of right ankle pain, She states that the symptoms have been acute traumatic and began on 07/29/2019. She indicates the injury occurred at [facility] after sustaining a fall. Currently the patient states that the symptoms are mild-moderate. The pain is described as aching and sometimes sharp. The symptoms occur continuously. The patient is experiencing pain in the following location: GLOBAL ANKLE on the right side. She rates her current pain as 5/10. PATIENT INDICATED THAT SHE FELL AT [facility], PATIENT WENT TO [facility] SAME DAY, PLACED IN SPLINT. PATIENT IS NWB IN POSTERIOR SPLINT. 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 Allergies Allergy/AdvReac Type Severity Reaction Status Date / Time aspirin Allergy Intermediate Rash Verified 08/03/19 08:03 codeine Allergy Intermediate Rash Verified 08/03/19 08:03 simvastatin Allergy Intermediate Rash Verified 08/03/19 08:03 morphine Allergy Mild Nausea Verified 08/03/19 08:03 blueberry Allergy Unknown Unknown Verified 08/03/19 08:03 strawberry Allergy Unknown Unknown Verified 08/03/19 08:03 chocolate flavor Allergy Unknown Verified 08/03/19 08:03 Home Medications Home Medications Medication Instructions Recorded Confirmed Type bisacodyl 10 mg rectal suppository 10 mg AL DAILY PRN 04/07/19 07/29/19 History ezetimibe 10 mg tablet 10 mg PO DAILY 04/07/19 07/29/19 History hydrochlorothiazide 12.5 mg capsule 12.5 mg PO DAILY 04/07/19 07/29/19 History ipratropium 0.5 mg-albuterol 3 mg 3 ml INH Q2H PRN 04/07/19 07/29/19 History (2.5 mg base)/3 mL nebulization soln ketoconazole 2 % shampoo 1 appln TOP .2 times weekly ml 04/07/19 07/29/19 History magnesium hydroxide 400 mg/5 mL 30 ml PO DAILY PRN ml 04/07/19 07/29/19 History oral suspension melatonin 3 mg capsule 3 mg PO HS 04/07/19 07/29/19 History oxycodone 5 mg tablet 5 mg PO Q4H PRN tab 04/07/19 07/29/19 History atenolol 100 mg PO DAILY 06/08/19 07/29/19 History cholecalciferol (vitamin D3) 400 unit PO DAILY 06/08/19 07/29/19 History [Vitamin D3] Preparation H 1 applic AL AMHS PRN 06/23/19 07/29/19 History acetaminophen 500 mg tablet 1,000 mg PO TID tab 07/06/19 07/29/19 History artifi.tears(hypromellose)(PF) 0.3 2 drops OP BID 07/06/19 07/29/19 History % eye drops desonide 0.05 % topical ointment 1 appln TOP BID PRN 07/06/19 07/29/19 History lanolin [id number]-yu-d.pet-ceres 1 appln TOP .Sat F 07/06/19 07/29/19 History gm nystatin-triamcinolone 100,000 1 appln TOP BID 07/06/19 07/29/19 History unit/g-0.1 % topical cream magnesium oxide 400 mg PO BID 07/20/19 07/29/19 History alum-mag hydroxide-simeth [Maalox 7.5 ml PO QID 07/29/19 08/03/19 History Maximum Strength] amlodipine 5 mg PO DAILY 07/29/19 08/03/19 History cefdinir 300 mg PO BID 10 Days #20 cap 07/29/19 08/03/19 Rx dextromethorphan-guaifenesin 10 ml PO QID 07/29/19 08/03/19 History ipratropium-albuterol 3 ml INHALATION QID 07/29/19 08/03/19 History warfarin 4 mg PO DAILY 07/29/19 08/03/19 History Past Med/Surg History Medical History Atherosclerosis (Chronic) Of leg with intermittent claudication Atrial fibrillation (Chronic) post op atrial fib with runs of v tach per notes Chronic anticoagulation (Chronic) Chronic kidney disease (Chronic) Dyslipidemia (Chronic) Gout Hypertension (Chronic) Laryngeal cancer (Chronic) per note, will start chem and radiation [facility] resident [facility] Peripheral vascular disease (Chronic) Pseudoaneurysm (Chronic) Right lower abd; Psoriasis (Chronic) Surgical History 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 H/O tracheostomy (Chronic) 03/09/19 #6 Shiloy inner cannula --- uncuffed per [place] [facility] uses oxygen 3l/min H/O tubal ligation (Resolved) History of appendectomy (Resolved) History of excision of lesion (Resolved) Right breast - benign History of laryngoscopy (Resolved) Direct laryngoscopy, biopsy of mass, and excision of mass on 03/09/19 History of right-sided carotid endarterectomy (Resolved) Hx of cataract surgery (Resolved) Bilateral S/P femoral-popliteal bypass surgery (Resolved) Bilaterally x 3 or 4 times; S/P RANULFO (total abdominal hysterectomy) (Resolved) including partial vaginectomy Family History Mother , 82yo Stroke Hypertension Diabetes Father , 68yo Stroke Hypertension Diabetes Brother Cardiac disease Brother No problems noted. Brother No problems noted. Sister of unknown cause Sister Hypertension Diabetes Sister Hypertension Diabetes Son Suicide Son No problems noted. Daughter Unknown family medical history Daughter MVA (motor vehicle accident) Social History Preferred Language: Panamanian Communication Ability: Effective Visual Impairment: No Limitations Hearing Ability: Normal Napping Machine Operator Required: No Beliefs That Will Affect Care: None marital status: Current Living Situation: Personal Care Facility Current Living Situation Comment: [facility] current occupational status: retired current occupation: Housewife; Feels Safe at Home: Yes Smoking Status: Former smoker Tobacco Type: cigarettes ; Cigarettes Per Day: Quit 20 yrs ago;1.5 PPD x 30 yrs ; Second Hand Exposure: No ; Hx Alcohol Use: No Hx Substance Use: No caffeine: No during the past year weight has: remained stable Review of Systems Review of Systems: All systems reviewed & are unremarkable except as noted in HPI & below Constitutional: no fever and no chills Respiratory: no cough Cardiovascular: no chest pain and no dyspnea Gastrointestinal: no abdominal pain, no nausea and no vomiting Musculoskeletal: as per Subjective / HPI Physical Exam Constitutional: WD/WN, vitals as above no acute distress Respiratory: normal respiratory effort, lungs clear to auscultation Cardiovascular: RRR, no murmur, no edema Gastrointestinal (Abdomen): normal bowel sounds, soft, nontender, no hepatosplenomegaly Musculoskeletal: Ankle: + ankle abnormal to inspection, + deformity, + ecchymosis (moderate ecchymosis globally) and + limited ROM of ankle (secondary to pain); no skin erythema and Pereira test negative Results & Data Diagnostic Findings XR ankle RT min 3V routine CLINICAL HISTORY: 74 years-old Female presenting with fall, right ankle pain. TECHNIQUE: Frontal, mortise, and lateral views of the right ankle were obtained. COMPARISON: None. FINDINGS: Suboptimal ankle mortise view. This limits evaluation. One half shaft width d isplacement of the distal fibular metaphyseal fracture, which extends from the posterior lateral cortex proximally to the anterior medial cortex distally. This is at the level of the syndesmosis. There is also a mildly diastatic predominantly transversely oriented medial malleolar fracture at the level of the tibial plafond. Underlying osteopenia. Ankle joint effusion suspected. Atherosclerosis. Mild diffuse edema with swelling most pronounced at the level of the ankle. IMPRESSION: Bimalleolar fracture with one half shaft width displacement at the distal fibular metaphyseal fracture. This likely has a pronation abduction stage III fracture pattern.
--- NOTE | 2019-08-03 15:11 | PAT Medication Instructions ---
Medication Instructions Date of Service August 03, 2019 Home Medications bisacodyl 10 mg rectal suppository 10 mg CA DAILY PRN ezetimibe 10 mg tablet 10 mg PO DAILY hydrochlorothiazide 12.5 mg capsule 12.5 mg PO DAILY ipratropium 0.5 mg-albuterol 3 mg (2.5 mg base)/3 mL nebulization soln 3 ml INH Q2H PRN ketoconazole 2 % shampoo 1 appln TOP 2XWK magnesium hydroxide 400 mg/5 mL oral suspension 30 ml PO DAILY PRN melatonin 3 mg capsule 3 mg PO HS oxycodone 5 mg tablet 5 mg PO Q4H PRN atenolol 100 mg PO DAILY cholecalciferol (vitamin D3) [Vitamin D3] 400 unit PO DAILY Preparation H 1 applic CA AMHS PRN acetaminophen 500 mg tablet 1,000 mg PO TID artifi.tears(hypromellose)(PF) 0.3 % eye drops 2 drops OP BID desonide 0.05 % topical ointment 1 appln TOP BID PRN lanolin [id number]-h.pet-ceres 1 appln TOP .Sat nystatin-triamcinolone 100,000 unit/g-0.1 % topical cream 1 appln TOP BID magnesium oxide 400 mg PO BID alum-mag hydroxide-simeth [Maalox Maximum Strength] 7.5 ml PO QID amlodipine 5 mg PO DAILY dextromethorphan-guaifenesin 10 ml PO QID ipratropium-albuterol 3 ml INHALATION QID warfarin 4 mg PO DAILY cefdinir 300 mg PO BID heparin flush(porcine)-0.9NaCl 1 unit IV UD sodium phosphates [Fleet Enema Extra] 118 ml CA DAILY PRN Continue as directed heparin flush(porcine)-0.9NaCl 1 unit IV UD ASK your prescriber and surgeon warfarin 4 mg PO DAILY (if still need instructions, please contact surgeon: Dr. Keenan at [phone]) STOP taking 24 hours before surgery ketoconazole 2 % shampoo 1 appln TOP 2XWK desonide 0.05 % topical ointment 1 appln TOP BID PRN lanolin [id number]-[id number]-c.pet-ceres 1 appln TOP .Sat nystatin-triamcinolone 100,000 unit/g-0.1 % topical cream 1 appln TOP BID DO NOT take the morning of surgery bisacodyl 10 mg rectal suppository 10 mg CA DAILY PRN hydrochlorothiazide 12.5 mg capsule 12.5 mg PO DAILY magnesium hydroxide 400 mg/5 mL oral suspension 30 ml PO DAILY PRN cholecalciferol (vitamin D3) [Vitamin D3] 400 unit PO DAILY Preparation H 1 applic CA AMHS PRN magnesium oxide 400 mg PO BID alum-mag hydroxide-simeth [Maalox Maximum Strength] 7.5 ml PO QID sodium phosphates [Fleet Enema Extra] 118 ml CA DAILY PRN Take morning of surgery With a small sip of water, OTHERWISE NOTHING TO EAT OR DRINK AFTER MIDNIGHT: ezetimibe 10 mg tablet 10 mg PO DAILY ipratropium 0.5 mg-albuterol 3 mg (2.5 mg base)/3 mL nebulization soln 3 ml INH Q2H PRN (if needed) oxycodone 5 mg tablet 5 mg PO Q4H PRN (okay to take up to 4 hours prior to surgery if needed) atenolol 100 mg PO DAILY acetaminophen 500 mg tablet 1,000 mg PO TID (okay to take up to 4 hours prior to surgery if needed) artifi.tears(hypromellose)(PF) 0.3 % eye drops 2 drops OP BID amlodipine 5 mg PO DAILY ipratropium-albuterol 3 ml INHALATION QID cefdinir 300 mg PO BID Take evening before surgery bisacodyl 10 mg rectal suppository 10 mg CA DAILY PRN (if needed) ipratropium 0.5 mg-albuterol 3 mg (2.5 mg base)/3 mL nebulization soln 3 ml INH Q2H PRN (if needed) magnesium hydroxide 400 mg/5 mL oral suspension 30 ml PO DAILY PRN (if needed) melatonin 3 mg capsule 3 mg PO HS oxycodone 5 mg tablet 5 mg PO Q4H PRN (if needed) Preparation H 1 applic CA AMHS PRN (if needed) acetaminophen 500 mg tablet 1,000 mg PO TID artifi.tears(hypromellose)(PF) 0.3 % eye drops 2 drops OP BID magnesium oxide 400 mg PO BID alum-mag hydroxide-simeth [Maalox Maximum Strength] 7.5 ml PO QID dextromethorphan-guaifenesin 10 ml PO QID ipratropium-albuterol 3 ml INHALATION QID cefdinir 300 mg PO BID sodium phosphates [Fleet Enema Extra] 118 ml CA DAILY PRN (if needed) Other Notes If you have any questions please call us at [phone] or [phone] or [phone] or [phone]
--- NOTE | 2019-08-03 15:19 | Anesthesiology Consultation ---
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 Velázquez- for upcoming ORIF, can consider block + spinal or see can consider general with switching out to cuffed trach, or using flex ETT 6.0 like with gastrostomy tube placement for 06/2019 [facility] surgery. Per Lala Marie with OR, 6.0 cuffed trachs available (do not have time/availability to obtain trach sizes up/down). Per Dr. Velázquez, case was reviewed with Dr. Chang who will evaluate patient AM DOS to determine type of anesthetic agent. - Check coags AM DOS - Check CBC with diff AM DOS (recent chemo) Chart Review Chart Review: Acceptable Risk for Surgery and Patient seen in Pre Admission Testing Teaching & Discussion Pre-Anesthesia Teaching/Discussion Notes: Instructed NPO after midnight before surgery,except medications with 15 cc of water. Medication instructions provided according to the PAT guidelines. History Surgery Operation Date: 08/05/19 11:50 Proposed Procedures p Right Ankle Open Reduction Internal Fixation Bimalleolar Fracture - Vaughn Keenan, Height/Weight Height: 5 ft 3 in Weight: 64.41 kg (wheelchair bound (ankle fracture)) Allergies Allergy/AdvReac Type Severity Reaction Status Date / Time aspirin Allergy Intermediate Rash Verified 08/03/19 09:45 codeine Allergy Intermediate Rash Verified 08/03/19 09:45 simvastatin Allergy Intermediate Rash Verified 08/03/19 09:45 morphine Allergy Mild Nausea Verified 08/03/19 09:45 blueberry Allergy Unknown Unknown Verified 08/03/19 09:45 strawberry Allergy Unknown Unknown Verified 08/03/19 09:45 chocolate flavor Allergy Unknown Verified 08/03/19 09:45 Medications Home Medications Medication Instructions Recorded Confirmed Last Taken bisacodyl 10 mg rectal suppository 10 mg NE DAILY PRN 04/07/19 08/03/19 Unknown ezetimibe 10 mg tablet 10 mg PO DAILY 04/07/19 08/03/19 06/22/19 08:00 hydrochlorothiazide 12.5 mg capsule 12.5 mg PO DAILY 04/07/19 08/03/19 06/22/19 08:00 ipratropium 0.5 mg-albuterol 3 mg 3 ml INH Q2H PRN 04/07/19 08/03/19 06/18/19 15:00 (2.5 mg base)/3 mL nebulization soln ketoconazole 2 % shampoo 1 appln TOP 2XWK ml 04/07/19 08/03/19 06/19/19 20:00 magnesium hydroxide 400 mg/5 mL 30 ml PO DAILY PRN ml 04/07/19 08/03/19 Unknown oral suspension melatonin 3 mg capsule 3 mg PO HS 04/07/19 08/03/19 06/22/19 20:30 oxycodone 5 mg tablet 5 mg PO Q4H PRN tab 04/07/19 08/03/19 Unknown atenolol 100 mg PO DAILY 06/08/19 08/03/19 06/22/19 08:00 cholecalciferol (vitamin D3) 400 unit PO DAILY 06/08/19 08/03/19 06/22/19 08:00 [Vitamin D3] Preparation H 1 applic NE AMHS PRN 06/23/19 08/03/19 Unknown acetaminophen 500 mg tablet 1,000 mg PO TID tab 07/06/19 08/03/19 Unknown artifi.tears(hypromellose)(PF) 0.3 2 drops OP BID 07/06/19 08/03/19 Unknown % eye drops desonide 0.05 % topical ointment 1 appln TOP BID PRN 07/06/19 08/03/19 Unknown lanolin dmigqmx-nn-q.pet-ceres 1 appln TOP .Mon Tu wed Th F 07/06/19 08/03/19 Unknown gm nystatin-triamcinolone 100,000 1 appln TOP BID 07/06/19 08/03/19 Unknown unit/g-0.1 % topical cream magnesium oxide 400 mg PO BID 07/20/19 08/03/19 Unknown alum-mag hydroxide-simeth [Maalox 7.5 ml PO QID 07/29/19 08/03/19 Unknown Maximum Strength] amlodipine 5 mg PO DAILY 07/29/19 08/03/19 Unknown dextromethorphan-guaifenesin 10 ml PO QID 07/29/19 08/03/19 Unknown ipratropium-albuterol 3 ml INHALATION QID 07/29/19 08/03/19 Unknown warfarin 4 mg PO DAILY 07/29/19 08/03/19 Unknown cefdinir 300 mg PO BID 08/03/19 08/03/19 Unknown heparin flush(porcine)-0.9NaCl 1 unit IV UD 08/03/19 08/03/19 Unknown sodium phosphates [Fleet Enema 118 ml NE DAILY PRN 08/03/19 08/03/19 Unknown Extra] Past Medical History Medical History (Updated 08/04/19 @ 08:39 by Rosette Allen) Anemia hgb stable in the 10-11 range per chart review Aortic stenosis Mild aortic stenosis (TIMI 1.7cm2) per 03/2019 ECHO Atherosclerosis (Chronic) LE/intermittent claudication Atrial fibrillation (Chronic) hx post-op atrial fib with runs of v tach per records- on anticoagulation Carotid artery stenosis s/p Right CEA (2012)/follows with [facility] vascular Chronic kidney disease stage 3 Dyslipidemia (Chronic) Gout H/O tracheostomy (Chronic) 03/09/19 #6 Shiley inner cannula --- uncuffed per snf uses oxygen 3l/min Hypertension (Chronic) Laryngeal cancer (Chronic) last chemo treatment 08/03/19, last neck radiation scheduled for 08/12 [facility] PAD (peripheral artery disease) s/p S/P aortobifemoral 2000 (L-limb occluded) S/P R=>L fem-fem bypass x 2 Follows with [facility] vascular Peripheral vascular disease (Chronic) Pseudoaneurysm (Chronic) Right lower abd Psoriasis (Chronic) Exercise / Class Metabolic Activity III < 4 Walking/Shop/Light housework (until fall few weeks ago) Past Family History Family History Mother , 82yo Stroke Hypertension Diabetes Father , 68yo Stroke Hypertension Diabetes Brother Cardiac disease Brother No problems noted. Brother No problems noted. Sister of unknown cause Sister Hypertension Diabetes Sister Hypertension Diabetes Son Suicide Son No problems noted. 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 H/O tubal ligation (Resolved) History of appendectomy (Resolved) History of excision of lesion (Resolved) Right breast - benign History of gastrostomy tube placement Gastrostomy tube insertion, Left A-port insertion: 06/23/19: GA/Trach removed, good tract, 6.0 Flex ETT in without problems at [facility] History of laryngoscopy (Resolved) Direct laryngoscopy, biopsy of mass, and excision of mass on 03/09/19 History of right-sided carotid endarterectomy (Resolved) 2012 Hx of cataract surgery (Resolved) Bilateral S/P femoral-popliteal bypass surgery (Resolved) S/P aortobifemoral 2000 (L-limb occluded) S/P R=>L fem-fem bypass x 2 S/P RANULFO (total abdominal hysterectomy) (Resolved) including partial vaginectomy Past Anesthesia History No Hx of Anesthesia Complications and No Family Hx of Anesthesia Complications History of PONV No Hx of PONV and No Hx of Motion Sickness Social History Smoking Status: Former smoker tobacco type: cigarettes Smoking cigarettes per day: 1.5 ppd x 30 years Do You Dip or Chew Tobacco: No Smoking End Date: Quit 2001 Hx Alcohol Use: No (hx of whiskey use - none currently) Hx Substance Use: No substance use type: does not use Review of Systems Patient denies chest pain, shortness of breath, wheezing, palpitations. Physical Exam Vital Signs VITALS BP 102/63 P 85 TEMP 97.9 SP02 90-93% 3L continuous via trach RESP 20 PHYSICAL Full neck and c-spine range of motion. Full TMJ range of motion. TMD __ finger breaths Mallampati Score ___ Dentition: edentulous, upper dentures Lungs: clear throughout to auscultation Cardiac: regular rate and rhythm, no murmurs noted Spine: normal Carotid arteries: negative bruit Extremities: no edema Testing Laboratory Results 08/03/19 WBC 6.18 H/H 10.5/31.6 PLATELETS 184 SODIUM 135 POTASSIUM 3.8 CHLORIDE 94 CO2 30 BUN 21 CREATININE 1.1 GLUCOSE 106 07/29/19 PT 24.5 PTT 45.1 INR 2.6 UA negative bacteria, + epithelials, + leuk esterase URINE CULTURE probably skin raul, no sensitivities to follow Electrocardiogram Date: 07/29/19 NSR at 84bpm. RBBB. Minimal voltage criteria for LVH, may be normal variant. Chest X-Ray Date: 07/29/19 No change in appearance of the chest. Emphysema with asymmetric left lung interstitial thickening and mild opacity. Echocardiogram Date: 03/17/19 LVEF 65 to 69%. Moderately increased concentric LV wall thickness. Mild aortic stenosis (TIMI 1.7cm2). Mild TR.
[~2019-08-05 08:52] MED LIST changes: +BUPIVACAINE 0.5 % 5 MG/1 ML MPF 30ML VIAL ONE; +BUPIVACAINE 0.5 % 5 MG/1 ML PF 10ML VIAL ONE; +BUPIVACAINE/EPINEPHRINE 0.25% 1:200,000 30 ML VIAL ONE; -CEFAZOLIN 2000MG 2,000 MG/15 ML SYR IV SCH; +DEXAMETHASONE SOD INJ 4 MG/ML VIAL ONE
[2019-08-05] MEDS ORDERED: fentaNYL citrate 100 MCG/2 ML VIAL ONE (08:59)
[2019-08-05] MEDS ORDERED: MIDAZOLAM HCL 1 MG/ML 2ML VIAL ONE (08:59)
[2019-08-05 09:24] LABS: Basophils # (auto) 0.05 K/uL (0-0.2); Basophils % (auto) 0.9 %; Eosinophils # (auto) 0.43 K/uL (0-0.5); Eosinophils % (auto) 7.4 %; Hematocrit (blood only) 34.6 % (37-47); Hemoglobin 11.5 g/dL (12.0-16.0); Immature Granulocytes # (auto) 0.02 K/uL (0.00-0.02); Immature Granulocytes % (auto) 0.3 %; Lymphocytes # (auto) 0.43 K/uL (1.2-3.4); Lymphocytes % (auto) 7.4 %; Mean Corpuscular Hemoglobin 31.1 pg (25-34); Mean Corpuscular Volume 93.5 fL (80-100); Mean Platelet Volume 9.6 fL (7.4-10.4); Monocytes # (auto) 0.65 K/uL (0.11-0.59); Monocytes % (auto) 11.1 %; Neutrophils # (auto) 4.25 K/uL (1.4-6.5); Neutrophils % (auto) 72.9 %; Platelet Count 203 K/uL (130-400); RDW Coefficient of Variation 13.8 % (11.5-14.5); White Blood Count 5.83 K/uL (4.8-10.8)
[2019-08-05 09:33] LABS: INR 1.2 (0.9-1.1); Partial Thromboplastin Ratio 1.2; Partial Thromboplastin Time 32.8 Seconds (21.0-31.0); Prothrombin Time 12.3 Seconds (9.0-12.0)
--- NOTE | 2019-08-05 09:33 | History & Physical Bridge Note ---
Date of Service August 05, 2019 History & Physical Bridge Note I have examined the patient, reviewed the History & Physical and in the interval since the performance of the History & Physical I have noted the following changes of clinical significance: no changes noted
[2019-08-05 09:35] LABS: Mean Corpuscular Hgb Conc 33.2 g/dL (32-36)
[2019-08-05] MEDS ORDERED: CEFAZOLIN 2000MG 2,000 MG/15 ML SYR IV ONE (09:40)
[2019-08-05] MEDS ORDERED: ONDANSETRON INJ 2 MG/ML 2 ML VIAL IV PRN ×2 (11:27→14:02)
[2019-08-05] MEDS ORDERED: ATROPINE SULFATE 0.1 MG/ML 10ML SYR IV PRN (11:27)
[2019-08-05] MEDS ORDERED: ePHEDrine sulfate 50 MG/ML AMP IV PRN (11:27)
[2019-08-05] MEDS ORDERED: fentaNYL citrate 100 MCG/2 ML VIAL IV PRN (11:27)
--- NOTE | 2019-08-05 12:11 | Operative Report ---
Post Operative Report Pre & Post Diagnosis Operation Date: 08/05/19 11:50 Pre-Op Diagnosis: Bimalleolar Fracture of Right Ankle Post-Op Diagnosis: Bimalleolar Fracture of Right Ankle I identified the patient and participated in the time-out.: Yes Procedure Operation Date: 08/05/19 11:50 Actual Procedures p Right Ankle Open Reduction Internal Fixation Bimalleolar Fracture(Right) utilizing 7 hole one third tubular plate on the fibula to 4.0 cannulated screws on the medial malleolus- Vaughn Keenan DO Surgeon Vaughn Keenan DO Piano Tuner FERNY Magaña Estimated Blood Loss 15 Findings Consistent with Post-Op Diagnosis Patient presents with displaced fracture bimalleolar right ankle after having had falls presents for reduction internal fixation. Specimens None Anesthesia Type MAC Spinal Regional Complications none Disposition Accompanied Patient To Recovery: No Disposition: Recovery Room Indications Patient presents with displaced bimalleolar fracture of the right ankle for reduction internal fixation. Description of Procedure Initiation of spinal anesthesia the right lower extremity was subsequently prepped and draped a tourniquet was placed on the proximal calf and was not used after proper prepping draping the right lower extremity the incision over the region of the distal fibula was made dissection carried down through subcutaneous tissues with special attention paid to protect sural nerve and all superficial veins and nerves regenerate tract out of harm's way the periosteal sleeve which was torn was elevated off the lateral aspect of the the fibula the fracture was reduced in anatomic position there was market comminution at the fracture site with softened bone the fracture be maintained in anatomic position with a series of bone clamps a 7 hole one third tubular was contoured to fit the lateral fibula this was visualized under fluoroscopic guidance was noted to be in anatomic position subsequently the one third tubular plate was fitted to the lateral fibula utilizing standard AO technique with 7 cortical screws the fibular reduction was anatomic the medial clear space was in anatomic position no widening of the syndesmosis as it was stressed intraoperatively was noted no syndesmotic tear was noted subsequent incision over the region of the medial malleolus was performed 2 guidewires were placed after anatomic reduction of the medial malleolar fragment to 4.0 screws were placed into the medial malleolus told medially satisfactory line position was then noted to be in anatomic position both AP and lateral planes under fluoroscopic guidance the wound was irrigated with copious amounts of sterile saline solution subcu closed with 2-0 Vicryl skin was closed with 3-0 nylon a sterile compressive dressing was placed as well as a posterior splint patient are procedure well taken recovery in stable condition please note FERNY Magaña was necessary for prepping draping retraction wound closure of deep fascia subcu and skin was necessary for the case I attest to the content of the Intraoperative Record and any orders documented therein. Any exceptions are noted below.
--- NOTE | 2019-08-05 12:18 | Fluoroscopy Report ---
FL ankle RT 2V CLINICAL HISTORY: RT ORIF BIMALLEOLAR FX COMPARISON STUDY: Right ankle 07/19/2019. FLUOROSCOPY TIME: 48 seconds. FINDINGS: 2 fluoroscopic spot images of the right ankle demonstrate internal fixation of a bimalleola r fracture with a cortical plate and screws. The hardware appears intact. Alignment is near-anatomic. IMPRESSION: Fluoroscopy provided for internal fixation of a right ankle bimalleolar fracture. ACT 112: Negative or not required by law. Electronically signed by: Eliseo Shaikh M.D. 08/05/2019 12:17 PM
[2019-08-05] MEDS ORDERED: LIDOCAINE HCL 2% 2 ML VIAL/AMP(20MG/ML) INFIL ONE (13:08)
[2019-08-05] MEDS ORDERED: PROPOFOL IV EMULSION 10 MG/ML 20 ML VIAL IV ONE (13:08)
[2019-08-05] MEDS ORDERED: PHENYLEPHRINE 100MCG/ML 5ML SYR ONE (13:08)
[2019-08-05] MEDS ORDERED: METOCLOPRAMIDE HCL INJ 5 MG/ML 2 ML VIAL IV PRN (14:02)
[2019-08-05] MEDS ORDERED: MAGNESIUM HYDROXIDE SUSP 30 ML UDC PO PRN ×2 (14:02)
[2019-08-05] MEDS ORDERED: MINERAL OIL PR PRN (14:02)
[2019-08-05] MEDS ORDERED: PETROLATUM PR PRN (14:02)
[2019-08-05] MEDS ORDERED: HYDROmorphone INJ 0.5 MG/0.5 ML SYR IV PRN (14:02)
[2019-08-05] MEDS ORDERED: OXYCODONE HCL IR 5 MG TAB (IMMEDIATE RELEASE) PO PRN (14:02)
[2019-08-05] MEDS ORDERED: ALUMINUM/MAGNESIUM/SIMETH (MAALOX MAX) 30 ML UDC PO SCH (14:02)
[2019-08-05] MEDS ORDERED: NALOXONE HCL 0.4 MG/1 ML VIAL/CARP IV PRN (14:02)
[2019-08-05] MEDS ORDERED: bisacodyL 10 MG SUPP PR PRN ×2 (14:02)
[2019-08-05] MEDS ORDERED: DESONIDE CR 15 GM TUBE EXT PRN (14:02)
[2019-08-05] MEDS ORDERED: PHENYLEPHRINE PR PRN (14:02)
[2019-08-05] MEDS ORDERED: ALBUT/IPRATROP 3MG/0.5MG NEB 3 ML VIAL INH PRN (14:02)
[2019-08-05] MEDS ORDERED: SOD PHOSPHATE/SOD BIPHOSPHATE ENEMA 132 ML BTL PR PRN (14:02)
[2019-08-05] MEDS: SODIUM CHLORIDE 0.9% 1000ML 1,000 ML IV SCH (14:25)
--- NOTE | 2019-08-05 14:34 | Anesthesiology Progress Note ---
Date of Service August 05, 2019 Anesthesia Post Procedure Vital Signs Vital Signs: Temp Pulse Pulse Pulse Resp BP Pulse Ox 08/05/19 14:19 36.6 C 83 16 155/67 H 96 08/05/19 13:25 36.7 C 77 17 131/91 97 08/05/19 13:15 36.7 C 72 20 152/73 H 97 08/05/19 13:05 36.7 C 74 21 162/83 H 97 08/05/19 12:55 74 21 147/71 H 97 08/05/19 12:45 71 14 126/69 100 08/05/19 12:35 36.5 C 79 18 148/92 H 99 08/05/19 09:25 37.1 C 75 24 156/71 H 99 Pain Intensity Right Ankle: Pain Intensity: 5 Transfer of Care Handoff Completed per policy Notes Mental Status: alert / awake / arousable Patient Amnestic to Procedure: Yes Nausea / Vomiting: adequately controlled Pain: adequately controlled Airway Patency, RR, SpO2: stable & adequate BP & HR: stable & adequate Hydration State: stable & adequate Anesthetic Complications: no major complications apparent
--- NOTE | 2019-08-05 14:35 | Consultation ---
Date of Consultation August 05, 2019 Assessment & Plan (1) Post-operative state: s/p ORIF of R ankle today. Doing well post-operatively. Pain is low to none. She has a history of intolerance of narcotics and requests to avoid these for now. Despite oxycodone being listed on her outpatient medication list, she reports not taking this. She would prefer to stick with the scheduled Tylenol as ordered by Orthopedics with Tramadol for breakthrough for now and use additional narcotics only if pain is severe. PT/OT and wound management per Ortho (2) Bimalleolar ankle fracture: s/p ORIF R ankle today. 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 I have contacted Radiation Oncology who expects her in the morning to continue her daily treatments. This has been cleared with surgery, also. PRN Magic Swizzle. Heparin flushes ordered for port. G-tube site intact and looks good. She also reports that she was recently started back on a regular diet, and this is present in the facility records. She didn't report swallowing with confidence, however, so will ask that Speech Path evaluate her abilities while she is here. Nutrition also ordered as the patient was on dietary supplements at [facility]. (4) H/O tracheostomy: requires oxygen at baseline. (5) Anemia: Chronic, stable. Repeat CBC in am. (6) Aortic stenosis: has h/o this on echo. Denies preoperative symptoms. Euvolemic on exam. (7) Acute UTI: Diagnosed with this one week ago and on cefdinir for the past week. Denies UTI symptoms. Urine culture was negative and stopping cefdinir now. Of note, she is on perioperative Ancef. (8) DVT prophylaxis: Relative contraindication 2/2 post op state on R leg. Will recommend SCD to left leg now. Has h/o DVT in the past. Warfarin restarted. Daily INR DNR as discussed with the patient on admission. Dispo-cont hospitalization. Return [facility] once ok for dc by Surgery. Rayna Palomares DO [facility] Hospitalist History of Present Illness Requesting Physician: Dr. Keenan Reason for Consultation: medication management, diet orders Attending Physician: Vaughn Keenan DO History of Present Illness 74-year-old patient with right ankle pain after a trauma from a fall. She resides at [facility] and was seen in the ER at [facility] just after the injury on 07/29/2019. An x-ray of the right ankle was performed revealing a bimalleolar fracture with one half shaft width displacement at the distal fibular metaphyseal fracture. Orthopedics was consulted and recommended outpatient follow-up. They saw her on 08/03/19 in the office and recommended an ORIF which was performed today, 08/05/2019. 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 She is undergoing chemotherapy with cetuximab concurrent with radiation therapy. She is under the care of Radha Appiah from [facility] oncology who is records note that her last dose of chemotherapy should be next week. Per senior care records she has been advanced to a regular soft mechanical diet with thin consistency and PRN house shakes (diet supplement) as of 07/23/2019. She is doing well post-operatively. She denies pain, chest pain, difficulty breathing, abdominal pain, GI symptoms or other issues at this time. She reports restarting a regular diet in recent weeks and has been tolerating food "OK." Given cefdinir for the past week with negative urine culture. Denies fevers, chills, or UTI symptoms. Allergies Allergy/AdvReac Type Severity Reaction Status Date / Time aspirin Allergy Intermediate Rash Verified 08/05/19 09:14 codeine Allergy Intermediate Rash Verified 08/05/19 09:14 simvastatin Allergy Intermediate Rash Verified 08/05/19 09:14 morphine Allergy Mild Nausea Verified 08/05/19 09:14 blueberry Allergy Unknown Unknown Verified 08/05/19 09:14 strawberry Allergy Unknown Unknown Verified 08/05/19 09:14 Home Medications Home Medications Medication Instructions Recorded Confirmed Type bisacodyl 10 mg rectal suppository 10 mg IN DAILY PRN 04/07/19 08/05/19 History ezetimibe 10 mg tablet 10 mg PO DAILY 04/07/19 08/05/19 History hydrochlorothiazide 12.5 mg capsule 12.5 mg PO DAILY 04/07/19 08/05/19 History ipratropium 0.5 mg-albuterol 3 mg 3 ml INH Q2H PRN 04/07/19 08/05/19 History (2.5 mg base)/3 mL nebulization soln ketoconazole 2 % shampoo 1 appln TOP 2XWK ml 04/07/19 08/05/19 History magnesium hydroxide 400 mg/5 mL 30 ml PO DAILY PRN ml 04/07/19 08/05/19 History oral suspension melatonin 3 mg capsule 3 mg PO HS 04/07/19 08/05/19 History oxycodone 5 mg tablet 5 mg PO Q4H PRN tab 04/07/19 08/05/19 History atenolol 100 mg PO DAILY 06/08/19 08/05/19 History cholecalciferol (vitamin D3) 400 unit PO DAILY 06/08/19 08/05/19 History [Vitamin D3] Preparation H 1 applic IN [facility] PRN 06/23/19 08/05/19 History acetaminophen 500 mg tablet 1,000 mg PO TID tab 07/06/19 08/05/19 History artifi.tears(hypromellose)(PF) 0.3 2 drops OP BID 07/06/19 08/05/19 History % eye drops desonide 0.05 % topical ointment 1 appln TOP BID PRN 07/06/19 08/05/19 History lanolin celeuty-qd-s.pet-ceres 1 appln TOP .Sat Th F 07/06/19 08/05/19 History gm nystatin-triamcinolone 100,000 1 appln TOP BID 07/06/19 08/05/19 History unit/g-0.1 % topical cream magnesium oxide 400 mg PO BID 07/20/19 08/05/19 History alum-mag hydroxide-simeth [Maalox 7.5 ml PO QID 07/29/19 08/05/19 History Maximum Strength] ipratropium-albuterol 3 ml INHALATION QID 07/29/19 08/05/19 History warfarin 4 mg PO DAILY 07/29/19 08/05/19 History cefdinir 300 mg PO BID 08/03/19 08/05/19 History heparin flush(porcine)-0.9NaCl 1 unit IV UD 08/03/19 08/05/19 History sodium phosphates [Fleet Enema 118 ml IN DAILY PRN 08/03/19 08/05/19 History Extra] Patient History Medical History Anemia hgb stable in the 10-11 range per chart review Aortic stenosis Mild aortic stenosis (TIMI 1.7cm2) per 03/2019 ECHO Atherosclerosis (Chronic) LE/intermittent claudication Atrial fibrillation (Chronic) hx post-op atrial fib with runs of v tach per records- on anticoagulation Carotid artery stenosis s/p Right CEA (2012)/follows with [facility] vascular Chronic kidney disease stage 3 Dyslipidemia (Chronic) Gout H/O tracheostomy (Chronic) 03/09/19 #6 Shiley inner cannula --- uncuffed per senior care uses oxygen 3l/min Hypertension (Chronic) Laryngeal cancer (Chronic) last chemo treatment 08/03/19, last neck radiation scheduled for 08/12 [facility] PAD (peripheral artery disease) s/p S/P aortobifemoral 2000 (L-limb occluded) S/P R=>L fem-fem bypass x 2 Follows with [facility] vascular Peripheral vascular disease (Chronic) Pseudoaneurysm (Chronic) Right lower abd Psoriasis (Chronic) Surgical History 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 H/O tubal ligation (Resolved) History of appendectomy (Resolved) History of excision of lesion (Resolved) Right breast - benign History of gastrostomy tube placement Gastrostomy tube insertion, Left A-port insertion: 06/23/19: GA/Trach removed, good tract, 6.0 Flex ETT in without problems at [facility] History of laryngoscopy (Resolved) Direct laryngoscopy, biopsy of mass, and excision of mass on 03/09/19 History of right-sided carotid endarterectomy (Resolved) 2012 Hx of cataract surgery (Resolved) Bilateral S/P femoral-popliteal bypass surgery (Resolved) S/P aortobifemoral 2000 (L-limb occluded) S/P R=>L fem-fem bypass x 2 S/P RANULFO (total abdominal hysterectomy) (Resolved) including partial vaginectomy Family History Mother , 82yo Stroke Hypertension Diabetes Father , 68yo Stroke Hypertension Diabetes Brother Cardiac disease Brother No problems noted. Brother No problems noted. Sister of unknown cause Sister Hypertension Diabetes Sister Hypertension Diabetes Son Suicide Son No problems noted. Daughter Unknown family medical history Daughter MVA (motor vehicle accident) Social History Preferred Language: Niuean Communication Ability: Effective Visual Impairment: No Limitations Hearing Ability: Normal Production Line Operator Required: No Beliefs That Will Affect Care: None marital status: Current Living Situation: Personal Care Facility Current Living Situation Comment: [facility] current occupational status: retired current occupation: Housewife; Other Information That Helps Us Care for You: No Feels Safe at Home: Yes Smoking Status: Former smoker Tobacco Type: cigarettes ; Cigarettes Per Day: Quit 20 yrs ago;1.5 PPD x 30 yrs ; Do You Dip or Chew Tobacco: No ; Smoking End Date: Quit 2001 ; Second Hand Exposure: No ; Tobacco Cessation Education Requested by Patient: No Hx Alcohol Use: No Hx Substance Use: No caffeine: No during the past year weight has: remained stable Review of Systems Review of Systems: All systems reviewed & are unremarkable except as noted in HPI & below Physical Exam Physical Exam: CONSTITUTIONAL: WNWD, vitals as above, generally well- appearing EYES: normal conjunctivae, no scleral icterus ENT: oropharynx clear, MMM, no overt irritation, loss of papillae on tongue (smooth-appearing) NECK: trachea midline, tracheostomy and collar in place, some irritation on posterior neck from trach collar placement. Supplemental oxygen running. RESPIRATORY: clear to auscultation bilaterally, no crackles, rales or wheezes, normal respiratory effort CARDIOVASCULAR: regular rate and rhythm, S1 and 2 heard without murmurs, gallops or rubs, no JVD, no peripheral edema CHEST: +port GASTROINTESTINAL: normal bowel sounds, soft, nontender, +bulging nontender area on RLQ, multiple well-healed surgical scars in midabdomen. G tube in place without surrounding erythema or drainage. MUSCULOSKELETAL: limited as in post op state but able to sit up on her own in the bed. Cast to RLE. SKIN: warm and dry, irritation of skin on posterior neck as above. NEUROLOGIC: CN 2-12 grossly intact, normal cognition, normal speech, denies feeling on toes which are warm to touch on right foot. PSYCHIATRIC: alert cooperative and oriented to person, place and time. Results & Data ([facility]) Vital Signs (Past 12 Hours) Vital Signs Temp Pulse Pulse Pulse Resp BP Pulse Ox 08/05/19 14:19 36.6 C 83 16 155/67 H 96 08/05/19 13:25 36.7 C 77 17 131/91 97 08/05/19 13:15 36.7 C 72 20 152/73 H 97 08/05/19 13:05 36.7 C 74 21 162/83 H 97 08/05/19 12:55 74 21 147/71 H 97 08/05/19 12:45 71 14 126/69 100 08/05/19 12:35 36.5 C 79 18 148/92 H 99 08/05/19 09:25 37.1 C 75 24 156/71 H 99 Laboratory Results Short CBC 08/05/19 Range/Units 09:13 WBC 5.83 (4.8-10.8) K/uL Hgb 11.5 L (12.0-16.0) g/dL Hct 34.6 L (37-47) % Plt Count 203 (130-400) K/uL Medications Administered Current Inpatient Medications Acetaminophen (Tylenol) 1,000 mg PO TID BRYON Stop: 09/04/19 14:01 Last Admin: 08/05/19 16:03 Dose: 1,000 mg Documented by: Albuterol (Duoneb) 3 ml INH Q2R PRN PRN Reason: Shortness Of Breath Or Wheezing Stop: 09/04/19 14:01 Albuterol (Duoneb) 3 ml INH QIDR BRYON Stop: 09/04/19 14:59 Last Admin: 08/05/19 15:08 Dose: 3 ml Documented by: Artificial Tears (Artificial Tears) 2 drops OP BID [facility] Stop: 09/04/19 20:59 Atenolol (Tenormin) 100 mg PO DAILY BR[facility]ON Stop: 09/05/19 08:59 Bisacodyl (Dulcolax) 10 mg IN DAILY PRN PRN Reason: Constipation Stop: 09/04/19 14:01 Lidocaine HCl 60 ml/Diphenhydramine HCl 150 mg/ Al Hydrox/Mg Hydrox/Simethicone 60 ml/ Glycerin 60 ml/ BARCODE IDENTIFIER 1 ea 0 ml PO Q4H PRN PRN Reason: throat pain Stop: 09/04/19 15:29 Desonide (Desowen 0.05%) 1 appln EXT BID PRN PRN Reason: Rash Stop: 09/04/19 14:01 Docusate Sodium (Colace) 100 mg PO BID [facility] Stop: 09/04/19 20:59 Ezetimibe (Zetia) 10 mg PO DAILY [facility] Stop: 09/05/19 08:59 Heparin Sodium (Porcine) (Heparin Sod 100 Unit/Ml Flush) 5 ml IV PRN PRN PRN Reason: Flush Stop: 09/04/19 15:44 Hydrochlorothiazide (Hctz) 12.5 mg PO DAILY [facility] Stop: 09/05/19 08:59 Cefazolin Sodium (Ancef 1000mg) 1,000 mg in 7.5 mls @ 2.5 mls/min IV Q8H [facility]; Protocol Stop: 08/06/19 03:02 Sodium Chloride (Nss 1000ml) 1,000 mls @ 100 mls/hr IV .Q10H [facility] Stop: 08/06/19 06:00 Last Admin: 08/05/19 14:25 Dose: 100 mls/hr Documented by: Ketoconazole (Nizoral 2%) 1 appln EXT TuFr [facility] Stop: 09/06/19 08:59 Magnesium Hydroxide (Milk Of Magnesia) 30 ml PO Q6H PRN PRN Reason: Constipation Stop: 09/04/19 14:01 Magnesium Oxide (Mag-Ox) 400 mg PO BID [facility] Stop: 09/04/19 20:59 Metoclopramide HCl (Reglan) 10 mg IV Q6H PRN PRN Reason: Nausea And Vomiting Stop: 09/04/19 14:01 Miscellaneous Information (Orthopaedic Warfarin Sliding Scale) 1 ea N/A DAILY@1400 [facility]; Protocol Stop: 09/04/19 14:01 Last Admin: 08/05/19 14:37 Dose: Not Given Documented by: Multi-Ingredient Cream (Hydrocerin) 1 appln TOP BID [facility] Stop: 09/04/19 20:59 Multivitamins (Multivitamin Tab) 1 tab PO QAM [facility] Stop: 09/05/19 08:59 Naloxone HCl (Narcan) 0.1 mg IV Q5M PRN PRN Reason: Oversedation/Resp Depression Stop: 09/04/19 14:01 Nystatin/Triamcinolone Acetonide (Mycolog Ii) 1 appln EXT BID [facility] Stop: 09/04/19 20:59 Ondansetron HCl (Zofran) 4 mg IV Q6H PRN PRN Reason: Nausea And Vomiting Stop: 09/04/19 14:01 Oxycodone HCl (Roxicodone Immediate Rel) 5 - 10 mg PO Q4H PRN PRN Reason: Pain or Pre PT Stop: 08/19/19 14:01 Sennosides (Senokot) 17.2 mg PO HS [facility] Stop: 09/04/19 20:59 Sodium Biphosphate/Sodium Phosphate (Fleet Enema) 132 ml IN DAILY PRN PRN Reason: Constipation Stop: 09/04/19 14:01 Tramadol HCl (Ultram) 50 mg PO Q4H PRN PRN Reason: Pain Stop: 09/04/19 15:13 Vitamin D (Vitamin D3) 400 units PO DAILY [facility] Stop: 09/05/19 08:59 (1) Bimalleolar ankle fracture Encounter type: initial encounter Fracture type: closed Laterality: right Qualified Code(s): S82.841A - Displaced bimalleolar fracture of right lower leg, initial encounter for closed fracture
[2019-08-05] MEDS: ORTHO WARFARIN NOMOGRAM SCH (14:37)
[2019-08-05] MEDS: ALBUT/IPRATROP 3MG/0.5MG NEB 3 ML VIAL INH SCH ×2 (15:08→19:25)
[2019-08-05] MEDS ORDERED: LIDOCAINE HCL 2% VISCOUS 60 ML, DiphenhydrAMINE Syrup 150 MG, ALUMINUM/MAGNESIUM SUSP 6... PO PRN (15:30)
[2019-08-05] MEDS ORDERED: WARFARIN SOD 5 MG TAB PO SCH (16:00)
[2019-08-05] MEDS: ACETAMINOPHEN 500 MG TAB PO SCH ×2 (16:03→21:04)
[2019-08-05] MEDS: CEFAZOLIN 1000MG 1,000 MG/7.5 ML SYR IV SCH (19:41)
[2019-08-05] MEDS: DOCUSATE SODIUM SYRUP 20MG/5ML 480ML PO SCH (20:59)
[2019-08-05] MEDS ORDERED: DOCUSATE SODIUM 100 MG CAP PO SCH (21:00)
[2019-08-05] MEDS ORDERED: CEFDINIR 300 MG CAP PO SCH (21:00)
[2019-08-05] MEDS: EUCERIN CR 120 GM JAR TOP SCH (21:00)
[2019-08-05] MEDS: NYSTATIN/TRIAMCIN CR 15 GM TUBE EXT SCH (21:01)
[2019-08-05] MEDS: SENNA 8.6 MG TAB PO SCH (21:02)
[2019-08-05] MEDS: MAGNESIUM OXIDE 400 MG TAB PO SCH (21:02)
[2019-08-05] MEDS: ARTIFICIAL TEARS OP SCH (21:22)
[2019-08-06] MEDS: SODIUM CHLORIDE 0.9% 1000ML 1,000 ML IV SCH (00:34)
[2019-08-06] MEDS: CEFAZOLIN 1000MG 1,000 MG/7.5 ML SYR IV SCH (03:50)
[2019-08-06] MEDS: ALBUT/IPRATROP 3MG/0.5MG NEB 3 ML VIAL INH SCH ×4 (07:19→19:36)
[2019-08-06 08:07] LABS: Hematocrit (blood only) 28.4 % (37-47); Hemoglobin 9.5 g/dL (12.0-16.0); Mean Corpuscular Hemoglobin 30.9 pg (25-34); Mean Corpuscular Hgb Conc 33.5 g/dL (32-36); Mean Corpuscular Volume 92.5 fL (80-100); Platelet Count 147 K/uL (130-400); RDW Coefficient of Variation 13.9 % (11.5-14.5); RDW Standard Deviation 45.1 fL (36.4-46.3); Red Blood Count 3.07 M/uL (4.2-5.4); White Blood Count 5.19 K/uL (4.8-10.8)
[2019-08-06] MEDS: DOCUSATE SODIUM SYRUP 20MG/5ML 480ML PO SCH ×2 (08:17→21:27)
[2019-08-06] MEDS: hydroCHLOROthiazide 25 MG TAB PO SCH (08:20)
[2019-08-06] MEDS: MULTIVITAMIN TAB PO SCH (08:21)
[2019-08-06] MEDS: MAGNESIUM OXIDE 400 MG TAB PO SCH (08:21)
[2019-08-06] MEDS: ATENOLOL 50 MG TABLET PO SCH (08:22)
[2019-08-06] MEDS: ACETAMINOPHEN 500 MG TAB PO SCH ×3 (08:22→21:29)
[2019-08-06] MEDS: EZETIMIBE 10 MG TABLET PO SCH (08:23)
[2019-08-06] MEDS: CHOLECALCIFEROL (VITAMIN D) 400 UNITS TABLET PO SCH (08:23)
[2019-08-06 08:39] LABS: BUN Creatinine Ratio 21.5 (10-20); Calcium 8.9 mg/dl (8.5-10.1); Creatinine Clr Calc Pharmacy 58.3 ml/min; Est GFR (African American) 88.2; Est GFR (Non-African American) 76.1; Magnesium 1.2 mg/dl (1.8-2.4); Potassium 3.1 mmol/L (3.5-5.1)
[2019-08-06] MEDS ORDERED: WARFARIN SOD 4 MG TAB PO SCH (09:00)
--- NOTE | 2019-08-06 10:10 | Anesthesiology Progress Note ---
Date of Service August 06, 2019 Anesthesia Post Procedure Vital Signs Vital Signs: Temp Pulse Pulse Resp BP Pulse Ox 08/06/19 08:14 36.5 C 77 16 157/70 H 99 08/06/19 07:24 79 18 92 08/06/19 02:50 36.4 C L 75 16 149/68 H 93 08/05/19 23:55 36.8 C 82 16 144/70 H 95 08/05/19 19:25 82 20 92 08/05/19 16:50 37 C 78 17 107/69 98 08/05/19 16:01 100 08/05/19 15:52 36.9 C 83 16 146/67 H 96 08/05/19 15:08 75 18 99 08/05/19 14:38 80 16 135/66 93 08/05/19 14:19 36.6 C 83 16 155/67 H 96 08/05/19 13:45 36.4 C L 79 18 136/72 97 08/05/19 13:25 36.7 C 77 17 131/91 97 08/05/19 13:15 36.7 C 72 20 152/73 H 97 08/05/19 13:05 36.7 C 74 21 162/83 H 97 08/05/19 12:55 74 21 147/71 H 97 08/05/19 12:45 71 14 126/69 100 08/05/19 12:35 36.5 C 79 18 148/92 H 99 Pain Intensity Right Ankle: Pain Intensity: 5 Notes Mental Status: alert / awake / arousable and participated in evaluation Patient Amnestic to Procedure: Yes Nausea / Vomiting: adequately controlled Pain: adequately controlled Airway Patency, RR, SpO2: stable & adequate BP & HR: stable & adequate Hydration State: stable & adequate Anesthetic Complications: no major complications apparent, see Notes below and Pt Satisfied with anesthetic care Notes: Pt satisfied with care - does note that still having difficulty moving toes. Discussed that may be related to swelling from ORIF of ankle but to keep RN informed if it does not improve.
[2019-08-06] MEDS: ARTIFICIAL TEARS OP SCH ×2 (11:23→21:28)
[2019-08-06] MEDS: EUCERIN CR 120 GM JAR TOP SCH ×2 (11:24→21:28)
[2019-08-06] MEDS: NYSTATIN/TRIAMCIN CR 15 GM TUBE EXT SCH ×2 (11:25→21:28)
--- NOTE | 2019-08-06 11:41 | Hospitalist Progress Note ---
Date of Service August 06, 2019 Assessment & Plan (1) Bimalleolar ankle fracture: -Bimalleolar Fracture of Right Ankle and s/p on 08/05/2019 Right Ankle Open Reduction Internal Fixation Bimalleolar Fracture(Right) utilizing 7 hole one third tubular plate on the fibula to 4.0 cannulated screws on the medial malleolus by Dr. Vaughn Keenan, (2) Post-operative state: -no acute post-operative needs at this time -orthopedic service plans on discharge to [facility] where patient have been staying for the past 4 months (3) Malignant neoplasm of larynx: -undergoing concurrent chemotherapy and radiation. -patient received radiation treatment on 08/06/2019 -patient should continue outpatient treatment outpatient appointments 09/01/2019 1:30 [address] [facility] Department Radiology [address] (CT CHEST WO CONTRAST as a 6 month followup) 09/07/2019 8:30 AM Provider Chair 7 Hem Onc [facility] Department Hematology/Oncology [facility] 09/07/2019 9:15 AM Provider Sushil Appiah MD Department Hematology/Oncology [facility] 09/10/2019 9:00 AM Provider Mercedes Vilchis MD Department Otolaryngology/Head & Neck/Facial Plastic Surgery (4) H/O tracheostomy: -requires supplementary oxygen at baseline. (5) Anemia: Chronic anemia Preop Hgb was 11.5 Hgb on 08/06/2019 is 9.5, no role of blood transfusions Hypomagnesemia -serum magnesium 1.2 on 08/06/2019 -continue BID oral magnesium -additional IV magnesium ordered on 08/06/2019 -ideal level of magnesium is 2 but if serum magnesium between 1.5 to 2 ranges then orthopedics can discharge with oral magnesium supplements -hypomagnesemia can contribute to hypokalemia Hypokalemia -serum potassium 3.1 on 08/06/2019. Potassium 40 mg oral ordered and IV potassium of 10 meq x 2 doses -orthopedics can discharge when serum potassium close to 3.5 when patient is discharged to [facility], patient should have repeat serum potassium and serum magnesium labs checked in 1 week (6) Aortic stenosis: history of aortic stenosis (7) Acute UTI: -patient was diagnosed with this one week ago and on cefdinir for the past week. Denies UTI symptoms. Urine culture was negative and cefdinir stopped by hospitalist on 08/05/2019; patient also received perioperative Ancef antibiotic during thsi stay. no further antibiotics needed for urine. (8) DVT prophylaxis: -coumadin is resumed after the surgery Admission and Anticipated Discharge Date Admission Date: August 05, 2019, discharge as per orthopedics once electrolytes are corrected Subjective breathing on tracheostomy collar with supplementary oxygen. No acute respiratory distress. patient speaks in full sentences. no chest pain, no abdomen pain. no nausea. no vomiting. no dizziness. no headache. Review of Systems Review of Systems: All systems reviewed & are unremarkable except as noted in HPI & below Physical Exam Constitutional: comfortable Eyes: PERRL, conjunctivae normal, anicteric sclerae + corneal abnormality Neck: breathing on tracheostomy collar with supplementary oxygen. No acute respiratory distress. patient speaks in full sentences. Respiratory: normal respiratory effort Cardiovascular: Rate/Rhythm: regular rate Gastrointestinal (Abdomen): normal bowel sounds, soft, nontender, no hepatosplenomegaly Musculoskeletal: right leg in dressing Neurologic: PERRL, EOMI, accommodation nl, no face palsy, no dysarthria Results & Data ([facility]) Vital Signs (Past 12 Hours) Vital Signs Temp Pulse Resp BP Pulse Ox 08/06/19 11:35 36.7 C 75 16 145/71 H 99 08/06/19 11:04 71 18 99 08/06/19 08:14 36.5 C 77 16 157/70 H 99 08/06/19 07:24 79 18 92 08/06/19 02:50 36.4 C L 75 16 149/68 H 93 08/05/19 23:55 36.8 C 82 16 144/70 H 95 (1) Bimalleolar ankle fracture Encounter type: initial encounter Fracture type: closed Laterality: right Qualified Code(s): S82.841A - Displaced bimalleolar fracture of right lower leg, initial encounter for closed fracture
[2019-08-06] MEDS ORDERED: POTASSIUM CHLORIDE 20 MEQ TABCR PO ONE (12:15)
[2019-08-06] MEDS: POTASSIUM CHLORIDE / WTR 10 MEQ/100 ML PLCT IV SCH ×2 (13:12→14:22)
[2019-08-06] MEDS: MAGNESIUM SULFATE / D5W 1 GM/100 ML BAG IV SCH ×2 (13:12→14:22)
[2019-08-06] MEDS: ORTHO WARFARIN NOMOGRAM SCH (13:41)
[2019-08-06] MEDS ORDERED: WARFARIN SOD 5 MG TAB PO SCH (16:00)
[2019-08-06 16:06] LABS: BUN Creatinine Ratio 22.8 (10-20); Calcium 8.2 mg/dl (8.5-10.1); Creatinine Clr Calc Pharmacy 48.2 ml/min; Est GFR (African American) 70.2; Est GFR (Non-African American) 60.5; Magnesium 2.2 mg/dl (1.8-2.4); Potassium 3.5 mmol/L (3.5-5.1)
--- NOTE | 2019-08-06 16:27 | Orthopedic Progress Note ---
Date of Service August 06, 2019 Assessment & Plan (1) Bimalleolar ankle fracture: Postop day 1 status post ORIF right ankle fracture Repeat labs this afternoon show potassium at 3.5 and magnesium at 2.2 I discussed the case with Dr. Burton who feels the patient is stable for transfer back to the [facility]. Patient will need a 3 midnight stay per case management to receive her physical therapy at her fdc facility. Continue PT/OT nonweightbearing right lower extremity. DVT prophylaxis with warfarin Pain management with p.o. Tylenol and oxycodone Discharge planning-plan for transfer to [facility] after 3 midnight stay. Admission and Anticipated Discharge Date Admission Date: August 05, 2019 Subjective Postop day 1 status post ORIF of right ankle. Patient lying in bed awake and alert. No overt complaints. Pain is controlled. BMP redrawn this afternoon due to low magnesium and potassium. Physical Exam Physical Exam: Splint/dressing is clean, dry, and intact. Toes with good capillary refill. Pain controlled. Results & Data ([facility]) Vital Signs (Past 12 Hours) Vital Signs Temp Pulse Resp BP Pulse Ox 08/06/19 15:44 37.0 C 75 16 128/68 97 08/06/19 15:27 75 18 98 08/06/19 11:35 36.7 C 75 16 145/71 H 99 08/06/19 11:04 71 18 99 08/06/19 08:14 36.5 C 77 16 157/70 H 99 08/06/19 07:24 79 18 92 (1) Bimalleolar ankle fracture Encounter type: initial encounter Fracture type: closed Laterality: right Qualified Code(s): S82.841A - Displaced bimalleolar fracture of right lower leg, initial encounter for closed fracture
[2019-08-06] MEDS: SENNA 8.6 MG TAB PO SCH (21:27)
[2019-08-07 06:31] LABS: Basophils # (auto) 0.05 K/uL (0-0.2); Basophils % (auto) 1.1 %; Eosinophils # (auto) 0.24 K/uL (0-0.5); Eosinophils % (auto) 5.3 %; Hematocrit (blood only) 27.7 % (37-47); Hemoglobin 9.1 g/dL (12.0-16.0); Lymphocytes # (auto) 0.46 K/uL (1.2-3.4); Lymphocytes % (auto) 10.2 %; Mean Corpuscular Hemoglobin 31.1 pg (25-34); Mean Corpuscular Hgb Conc 32.9 g/dL (32-36); Mean Corpuscular Volume 94.5 fL (80-100); Monocytes # (auto) 0.58 K/uL (0.11-0.59); Monocytes % (auto) 12.8 %; Neutrophils % (auto) 70.6 %; Platelet Count 164 K/uL (130-400); RDW Coefficient of Variation 14.2 % (11.5-14.5); RDW Standard Deviation 47.8 fL (36.4-46.3); Red Blood Count 2.93 M/uL (4.2-5.4); White Blood Count 4.53 K/uL (4.8-10.8)
[2019-08-07 06:40] LABS: INR 1.3 (0.9-1.1); Prothrombin Time 13.4 Seconds (9.0-12.0)
--- NOTE | 2019-08-07 06:58 | Orthopedic Progress Note ---
Date of Service August 07, 2019 Assessment & Plan (1) Bimalleolar ankle fracture: Postop day 2 status post ORIF right ankle fracture patient will need a 3 midnight stay per case management to receive her physical therapy at her residential facility. Continue PT/OT nonweightbearing right lower extremity. DVT prophylaxis with warfarin Pain management with p.o. Tylenol and oxycodone Discharge planning-plan for transfer to [facility] after 3 midnight stay, likely Saturday morning. Admission and Anticipated Discharge Date Admission Date: August 05, 2019 Subjective Postop day 2 status post ORIF of right ankle. Patient lying in bed awake and alert. No overt complaints. Pain is controlled. pain currently rated 2/10 Review of Systems Cardiovascular: no chest pain Gastrointestinal: no nausea and no vomiting Physical Exam Physical Exam: Vital Signs Temp 37.0 C 08/06/19 23:18 Pulse 69 08/06/19 23:18 Resp 16 08/06/19 23:18 BP 126/72 08/06/19 23:18 Pulse Ox 96 08/06/19 23:18 Intake & Output 08/06/19 08/06/19 08/07/19 06:59 18:59 06:59 Intake Total 1100 / 2000 2050 / 2150 100 / 2150 Output Total 1001 / 1716 300 / 1200 900 / 1200 Balance 99 / 284 1750 / 950 -800 / 950 Intake: IV 1000 / 1500 1400 / 1400 MAGNESIUM SULF ATE / D5W 1 gm In 200 / 200 100 ml @ 100 m ls/hr IV Q1H BRYON Rx#:[id number] K RIDER / WTR 10 meq In 100 ml 200 / 200 @ 100 mls/hr I V Q1H BRYON Rx#: [id number] Nss 1000ML 1,0 00 ml @ 100 mls/ 1000 / 1000 1000 / 1000 hr IV .Q10H SC H Rx#:[id number] Oral 100 / 100 650 / 750 100 / 750 Output: Urine 1000 / 1700 300 / 1200 900 / 1200 # Bowel Movement s Other: # Unmeasured Voi ds 1 Constitutional: WD/WN, vitals as above no acute distress Musculoskeletal: Right ankle: remains in splint, she is able to wiggle her toes, sensation intact to tips of toes. Results & Data ([facility]) Vital Signs (Past 12 Hours) Vital Signs Temp Pulse Resp BP Pulse Ox 08/06/19 23:18 37.0 C 69 16 126/72 96 08/06/19 19:47 74 16 35 L Laboratory Results Laboratory Results WBC 4.53 K/uL (4.8-10.8) L 08/07/19 05:37 RBC 2.93 M/uL (4.2-5.4) L 08/07/19 05:37 Hgb 9.1 g/dL (12.0-16.0) L 08/07/19 05:37 Hct 27.7 % (37-47) L 08/07/19 05:37 MCV 94.5 fL (80-100) 08/07/19 05:37 MCH 31.1 pg (25-34) 08/07/19 05:37 MCHC 32.9 g/dL (32-36) 08/07/19 05:37 RDW Std Deviation 47.8 fL (36.4-46.3) H 08/07/19 05:37 RDW Coeff of [place] 14.2 % (11.5-14.5) 08/07/19 05:37 Plt Count 164 K/uL (130-400) 08/07/19 05:37 MPV 10.0 fL (7.4-10.4) 08/07/19 05:37 Immature Gran % (Auto) 0.0 % 08/07/19 05:37 Neut % (Auto) 70.6 % 08/07/19 05:37 Lymph % (Auto) 10.2 % 08/07/19 05:37 [place] % (Auto) 12.8 % 08/07/19 05:37 Eos % (Auto) 5.3 % 08/07/19 05:37 Baso % (Auto) 1.1 % 08/07/19 05:37 Immature Gran # (Auto) 0.00 K/uL (0.00-0.02) 08/07/19 05:37 Neut # (Auto) 3.20 K/uL (1.4-6.5) 08/07/19 05:37 Lymph # (Auto) 0.46 K/uL (1.2-3.4) L 08/07/19 05:37 [place] # (Auto) 0.58 K/uL (0.11-0.59) 08/07/19 05:37 Eos # (Auto) 0.24 K/uL (0-0.5) 08/07/19 05:37 Baso # (Auto) 0.05 K/uL (0-0.2) 08/07/19 05:37 PT 13.4 Seconds (9.0-12.0) H 08/07/19 05:37 INR 1.3 (0.9-1.1) H 08/07/19 05:37 APTT 32.8 Seconds (21.0-31.0) H 08/05/19 09:13 PTT Ratio 1.2 08/05/19 09:13 Sodium 138 mmol/L (136-145) 08/06/19 15:09 Potassium 3.5 mmol/L (3.5-5.1) 08/06/19 15:09 Chloride 104 mmol/L (98-107) 08/06/19 15:09 Carbon Dioxide 30 mmol/L (21-32) 08/06/19 15:09 Anion Gap 4.0 (3-11) 08/06/19 15:09 BUN 21 mg/dl (7-18) H 08/06/19 15:09 Creatinine 0.93 mg/dl (0.6-1.2) 08/06/19 15:09 Est Cr Clr Drug Dosing 48.2 ml/min 08/06/19 15:09 Est GFR ( Amer) 70.2 08/06/19 15:09 Est GFR (Non-Af Amer) 60.5 08/06/19 15:09 BUN/Creatinine Ratio 22.8 (10-20) H 08/06/19 15:09 Glucose 128 mg/dl (70-99) H 08/06/19 15:09 Calcium 8.2 mg/dl (8.5-10.1) L 08/06/19 15:09 Phosphorus 2.6 mg/dl (2.5-4.9) 08/06/19 07:46 Magnesium 2.2 mg/dl (1.8-2.4) 08/06/19 15:09 Nasal Screen MRSA (PCR) Positive (Negative) A 08/05/19 21:00 (1) Bimalleolar ankle fracture Encounter type: initial encounter Fracture type: closed Laterality: right Qualified Code(s): S82.841A - Displaced bimalleolar fracture of right lower leg, initial encounter for closed fracture
[2019-08-07 07:02] LABS: BUN Creatinine Ratio 20.7 (10-20); Calcium 8.3 mg/dl (8.5-10.1); Creatinine Clr Calc Pharmacy 56.1 ml/min; Est GFR (African American) 84.2; Est GFR (Non-African American) 72.6; Magnesium 1.4 mg/dl (1.8-2.4); Potassium 3.7 mmol/L (3.5-5.1)
[2019-08-07] MEDS: ALBUT/IPRATROP 3MG/0.5MG NEB 3 ML VIAL INH SCH ×4 (08:24→20:22)
[2019-08-07] MEDS: TRAMADOL HCL 50 MG TABLET PO PRN ×2 (08:59→20:15)
[2019-08-07] MEDS ORDERED: MAGNESIUM OXIDE 400 MG TAB PO SCH (09:00)
[2019-08-07] MEDS ORDERED: KETOCONAZOLE 2% SHAMPOO 120 ML BTL EXT SCH ×2 (09:00)
[2019-08-07] MEDS: MAGNESIUM SULFATE / D5W 1 GM/100 ML BAG IV SCH ×2 (09:01→10:04)
[2019-08-07] MEDS: ARTIFICIAL TEARS OP SCH ×2 (09:06→20:16)
[2019-08-07] MEDS: EUCERIN CR 120 GM JAR TOP SCH ×2 (09:07→20:17)
[2019-08-07] MEDS: DOCUSATE SODIUM SYRUP 20MG/5ML 480ML PO SCH ×2 (09:09→20:16)
[2019-08-07] MEDS: CHOLECALCIFEROL (VITAMIN D) 400 UNITS TABLET PO SCH (09:10)
[2019-08-07] MEDS: EZETIMIBE 10 MG TABLET PO SCH (09:11)
[2019-08-07] MEDS: MAGNESIUM OXIDE 400 MG TAB PO SCH ×2 (09:12→20:17)
[2019-08-07] MEDS: hydroCHLOROthiazide 25 MG TAB PO SCH (09:13)
[2019-08-07] MEDS: MULTIVITAMIN TAB PO SCH (09:14)
[2019-08-07] MEDS: ATENOLOL 50 MG TABLET PO SCH (09:15)
[2019-08-07] MEDS: ACETAMINOPHEN 325 MG TAB PO SCH ×3 (09:17→20:16)
[2019-08-07] MEDS: NYSTATIN/TRIAMCIN CR 15 GM TUBE EXT SCH ×2 (09:19→20:18)
[2019-08-07] MEDS: ORTHO WARFARIN NOMOGRAM SCH (09:32)
--- NOTE | 2019-08-07 12:07 | Hospitalist Progress Note ---
Date of Service August 07, 2019 Assessment & Plan (1) Bimalleolar ankle fracture: -Bimalleolar Fracture of Right Ankle and s/p on 08/05/2019 Right Ankle Open Reduction Internal Fixation Bimalleolar Fracture(Right) utilizing 7 hole one third tubular plate on the fibula to 4.0 cannulated screws on the medial malleolus by Dr. Vaughn Keenan, DO -on pain medications (2) Post-operative state: -no acute post-operative needs at this time -orthopedic service plans on discharge to [facility] where patient have been staying for the past 4 months -as per case management plan for discharge on Saturday08/08/2019 (3) Malignant neoplasm of larynx: -undergoing concurrent chemotherapy and radiation. -patient received radiation treatment on 08/06/2019 and 08/07/2019 -patient should continue outpatient treatment outpatient appointments 09/01/2019 1:30 [address] [facility] Department Radiology [address] (CT CHEST WO CONTRAST as a 6 month followup) 09/07/2019 8:30 AM Provider Chair 7 Hem Onc [facility]/07/2019 9:15 AM Provider Sushil Appiah MD Department Hematology/Oncology [facility] 09/10/2019 9:00 AM Provider Mercedes Vilchis MD Department Otolaryngology/Head & Neck/Facial Plastic Surgery (4) H/O tracheostomy: Chronic respiratory failure with hypoxia -requires supplementary oxygen at baseline through tracheostomy (5) Anemia: Chronic anemia Preop Hgb was 11.5 Hgb on 08/06/2019 is 9.5, no role of blood transfusions Hypertension -on HCTZ Hypomagnesemia -serum magnesium 1.2 on 08/06/2019 -continue BID oral magnesium -additional IV magnesium ordered on 08/06/2019. repeat magnesium levels as above 2 -serum magnesium 1.4 on 08/07/2019: oral and IV serum magnesium given, follow repeat serum magnesium labs -HCTZ may also contribute to some loss of magnesium Hypokalemia -serum potassium 3.1 on 08/06/2019. Potassium 40 mg oral ordered and IV potassium of 10 meq x 2 doses -serum potassium levels at goal on 08/07/2019 when patient is discharged to [facility], patient should have repeat serum potassium and serum magnesium labs checked in 1 week (6) Aortic stenosis: history of aortic stenosis (7) Acute UTI: -patient was diagnosed with this one week ago and on cefdinir for the past week. Denies UTI symptoms. Urine culture was negative and cefdinir stopped by hospitalist on 08/05/2019; patient also received perioperative Ancef antibiotic during thsi stay. no further antibiotics needed for urine. (8) DVT prophylaxis: -coumadin is resumed after the surgery Admission and Anticipated Discharge Date Admission Date: August 05, 2019 Subjective Patient had radiation therapy. performed physical therapy today. sitting on wheelchair and reports some throbbing of operate right ankle baseline respiratory status. no distress. no chest pain. no abdomen pain. no vomiting. no dizziness or headache reported Review of Systems Review of Systems: All systems reviewed & are unremarkable except as noted in HPI & below Physical Exam Constitutional: comfortable Eyes: PERRL, conjunctivae normal, anicteric sclerae + corneal abnormality ENMT: supplementary oxygen through tracheostomy Respiratory: normal respiratory effort Cardiovascular: Rate/Rhythm: regular rate Gastrointestinal (Abdomen): normal bowel sounds, soft, nontender, no hepatosplenomegaly Musculoskeletal: right ankle in dressing Neurologic: PERRL, EOMI, accommodation nl, no face palsy, no dysarthria Results & Data ([facility]) Vital Signs (Past 12 Hours) Vital Signs Temp Pulse Resp BP Pulse Ox 08/07/19 11:40 79 19 96 08/07/19 08:25 75 18 97 08/07/19 07:25 36.9 C 78 16 138/73 95 (1) Bimalleolar ankle fracture Encounter type: initial encounter Fracture type: closed Laterality: right Qualified Code(s): S82.841A - Displaced bimalleolar fracture of right lower leg, initial encounter for closed fracture
[2019-08-07] MEDS ORDERED: HYDROmorphone INJ 0.5 MG/0.5 ML SYR IV STA (12:10)
[2019-08-07] MEDS ORDERED: DiphenhydrAMINE HCL 50 MG/ML VIAL IV STA (12:10)
[2019-08-07] MEDS ORDERED: WARFARIN SOD 5 MG TAB PO SCH (16:00)
[2019-08-07] MEDS: SENNA 8.6 MG TAB PO SCH (20:16)
[2019-08-08 06:20] LABS: INR 1.4 (0.9-1.1)
--- NOTE | 2019-08-08 06:33 | Orthopedic Progress Note ---
Date of Service August 08, 2019 Assessment & Plan (1) Bimalleolar ankle fracture: Postop day 3 status post ORIF right ankle fracture Plan is for her to return to her residential facility at 1:00 today Continue PT/OT nonweightbearing right lower extremity. DVT prophylaxis with warfarin Pain management with p.o. Tylenol and oxycodone Discharge planning-plan for transfer to [facility] Admission and Anticipated Discharge Date Admission Date: August 05, 2019 Subjective Postop day 3 status post ORIF of right ankle. Patient lying in bed awake and alert. No overt complaints. Pain is controlled. Physical Exam Physical Exam: Vital Signs Temp 37.3 C 08/07/19 23:41 Pulse 83 08/07/19 23:41 Resp 18 08/07/19 23:41 BP 122/69 08/07/19 23:41 Pulse Ox 82 L 08/08/19 00:14 Intake & Output 08/07/19 08/07/19 08/08/19 06:59 18:59 06:59 Intake Total 100 / 2150 638.333 / 838.333 200 / 838.333 Output Total 900 / 1200 Balance -800 / 950 638.333 / 838.333 200 / 838.333 Intake: IV 198.333 / 198.333 MAGNESIUM SULF ATE / D5W 1 gm In 198.333 / 198.333 100 ml @ 100 m ls/hr IV Q1H BRYON Rx#:[id number] Oral 100 / 750 440 / 640 200 / 640 Output: Urine 900 / 1200 Other: # Unmeasured Voi ds 1 Constitutional: WD/WN, vitals as above no acute distress Musculoskeletal: right ankle: splinted, able to wiggle toes, sensation intact to light touch Results & Data ([facility]) Vital Signs (Past 12 Hours) Vital Signs Temp Pulse Resp BP Pulse Ox 08/08/19 00:14 82 L 08/07/19 23:41 37.3 C 83 18 122/69 87 L 08/07/19 20:22 86 18 90 Laboratory Results Laboratory Results WBC 4.53 K/uL (4.8-10.8) L 08/07/19 05:37 RBC 2.93 M/uL (4.2-5.4) L 08/07/19 05:37 Hgb 9.1 g/dL (12.0-16.0) L 08/07/19 05:37 Hct 27.7 % (37-47) L 08/07/19 05:37 MCV 94.5 fL (80-100) 08/07/19 05:37 MCH 31.1 pg (25-34) 08/07/19 05:37 MCHC 32.9 g/dL (32-36) 08/07/19 05:37 RDW Std Deviation 47.8 fL (36.4-46.3) H 08/07/19 05:37 RDW Coeff of [place] 14.2 % (11.5-14.5) 08/07/19 05:37 Plt Count 164 K/uL (130-400) 08/07/19 05:37 MPV 10.0 fL (7.4-10.4) 08/07/19 05:37 Immature Gran % (Auto) 0.0 % 08/07/19 05:37 Neut % (Auto) 70.6 % 08/07/19 05:37 Lymph % (Auto) 10.2 % 08/07/19 05:37 [place] % (Auto) 12.8 % 08/07/19 05:37 Eos % (Auto) 5.3 % 08/07/19 05:37 Baso % (Auto) 1.1 % 08/07/19 05:37 Immature Gran # (Auto) 0.00 K/uL (0.00-0.02) 08/07/19 05:37 Neut # (Auto) 3.20 K/uL (1.4-6.5) 08/07/19 05:37 Lymph # (Auto) 0.46 K/uL (1.2-3.4) L 08/07/19 05:37 [place] # (Auto) 0.58 K/uL (0.11-0.59) 08/07/19 05:37 Eos # (Auto) 0.24 K/uL (0-0.5) 08/07/19 05:37 Baso # (Auto) 0.05 K/uL (0-0.2) 08/07/19 05:37 PT 14.0 Seconds (9.0-12.0) H 08/08/19 05:30 INR 1.4 (0.9-1.1) H 08/08/19 05:30 APTT 32.8 Seconds (21.0-31.0) H 08/05/19 09:13 PTT Ratio 1.2 08/05/19 09:13 Sodium 140 mmol/L (136-145) 08/07/19 05:37 Potassium 3.7 mmol/L (3.5-5.1) 08/07/19 05:37 Chloride 107 mmol/L (98-107) 08/07/19 05:37 Carbon Dioxide 30 mmol/L (21-32) 08/07/19 05:37 Anion Gap 3.0 (3-11) 08/07/19 05:37 BUN 17 mg/dl (7-18) 08/07/19 05:37 Creatinine 0.80 mg/dl (0.6-1.2) 08/07/19 05:37 Est Cr Clr Drug Dosing 56.1 ml/min 08/07/19 05:37 Est GFR ( Amer) 84.2 08/07/19 05:37 Est GFR (Non-Af Amer) 72.6 08/07/19 05:37 BUN/Creatinine Ratio 20.7 (10-20) H 08/07/19 05:37 Glucose 91 mg/dl (70-99) 08/07/19 05:37 Calcium 8.3 mg/dl (8.5-10.1) L 08/07/19 05:37 Phosphorus 2.6 mg/dl (2.5-4.9) 08/06/19 07:46 Magnesium 2.1 mg/dl (1.8-2.4) 08/07/19 12:31 Nasal Screen MRSA (PCR) Positive (Negative) A 08/05/19 21:00 (1) Bimalleolar ankle fracture Encounter type: initial encounter Fracture type: closed Laterality: right Qualified Code(s): S82.841A - Displaced bimalleolar fracture of right lower leg, initial encounter for closed fracture
[2019-08-08] MEDS: ALBUT/IPRATROP 3MG/0.5MG NEB 3 ML VIAL INH SCH ×2 (07:15→11:29)
[2019-08-08 07:50] VITALS: BP 147/73; TEMP 99
--- NOTE | 2019-08-08 08:28 | Hospitalist Progress Note ---
Date of Service August 08, 2019 Assessment & Plan (1) Bimalleolar ankle fracture: -Bimalleolar Fracture of Right Ankle and s/p on 08/05/2019 Right Ankle Open Reduction Internal Fixation Bimalleolar Fracture(Right) utilizing 7 hole one third tubular plate on the fibula to 4.0 cannulated screws on the medial malleolus by Dr. Vaughn Keenan, DO -on pain medications (2) Post-operative state: -no acute post-operative needs at this time -orthopedic service plans on discharge to [facility] where patient have been staying for the past 4 months -as per case management plan for discharge on Saturday08/08/2019 (3) Malignant neoplasm of larynx: -undergoing concurrent chemotherapy and radiation. -patient received radiation treatment on 08/06/2019 and 08/07/2019 -patient should continue outpatient treatment outpatient appointments 09/01/2019 1:[address] [facility] Department Radiology [address] (CT CHEST WO CONTRAST as a 6 month followup) 09/07/2019 8:30 AM Provider Chair 7 Hem Onc [facility] 09/07/[facility] 9:15 AM Provider Sushil Appiah MD Department Hematology/Oncology [facility] 09/10/2019 9:00 AM Provider Mercedes Vilchis MD Department Otolaryngology/Head & Neck/Facial Plastic Surgery (4) H/O tracheostomy: Chronic respiratory failure with hypoxia -requires supplementary oxygen at baseline through tracheostomy (5) Anemia: Chronic anemia Preop Hgb was 11.5 Hgb on 08/06/2019 is 9.5, no role of blood transfusions Hypertension -on HCTZ Hypomagnesemia -serum magnesium 1.2 on 08/06/2019 -continue BID oral magnesium -additional IV magnesium ordered on 08/06/2019. repeat magnesium levels as above 2 -serum magnesium 1.4 on 08/07/2019: oral and IV serum magnesium given, follow repeat serum magnesium is at goal at 2.1 -HCTZ may also contribute to some loss of magnesium but HCTZ controlling the blood pressure -prescription sent for continuing daily magnesium oxide for 15 days Hypokalemia -serum potassium 3.1 on 08/06/2019. Potassium 40 mg oral ordered and IV potassium of 10 meq x 2 doses -serum potassium levels at goal on 08/07/2019 when patient is discharged to [facility], patient should have repeat serum potassium and serum magnesium labs checked in 1 week (6) Aortic stenosis: history of aortic stenosis (7) Acute UTI: -patient was diagnosed with this one week ago and on cefdinir for the past week. Denies UTI symptoms. Urine culture was negative and cefdinir stopped by hospitalist on 08/05/2019; patient also received perioperative Ancef antibiotic during this stay. no further antibiotics needed for urine. (8) DVT prophylaxis: -coumadin is resumed after the surgery Admission and Anticipated Discharge Date Admission Date: August 05, 2019, 08/08/2019: discharge to physical rehabilitation [facility] as per orthopedics and case management Subjective Patient seen and examined at bedside while sitting up in the bed. She is on chronic oxygen through the tracheostomy and no respiratory distress. she reports pain is controlled of the right ankle which is in dressing. No chest pain. no abdomen pain. no vomiting. Review of Systems Review of Systems: All systems reviewed & are unremarkable except as noted in HPI & below Physical Exam Constitutional: comfortable Eyes: PERRL, conjunctivae normal, anicteric sclerae + corneal abnormality ENMT: external ear and nose normal, oropharynx normal Neck: chronic oxygen supplementation through the tracheostomy Respiratory: normal respiratory effort Cardiovascular: Rate/Rhythm: regular rate Gastrointestinal (Abdomen): normal bowel sounds, soft, nontender, no hepatosplenomegaly Musculoskeletal: right foot in dressing Neurologic: PERRL, EOMI, accommodation nl, no face palsy, no dysarthria Psychiatric: A+Ox3, euthymic affect Results & Data ([facility]) Vital Signs (Past 12 Hours) Vital Signs Temp Pulse Resp BP Pulse Ox 08/08/19 07:50 37.2 C 82 16 147/73 H 95 08/08/19 07:21 70 16 96 08/08/19 00:14 82 L 08/07/19 23:41 37.3 C 83 18 122/69 87 L (1) Bimalleolar ankle fracture Encounter type: initial encounter Fracture type: closed Laterality: right Qualified Code(s): S82.841A - Displaced bimalleolar fracture of right lower leg, initial encounter for closed fracture
[2019-08-08] MEDS: MAGNESIUM OXIDE 400 MG TAB PO SCH (08:59)
[2019-08-08] MEDS: CHOLECALCIFEROL (VITAMIN D) 400 UNITS TABLET PO SCH (09:00)
[2019-08-08] MEDS: ACETAMINOPHEN 325 MG TAB PO SCH ×2 (09:00→13:07)
[2019-08-08] MEDS: hydroCHLOROthiazide 25 MG TAB PO SCH (09:01)
[2019-08-08] MEDS: DOCUSATE SODIUM SYRUP 20MG/5ML 480ML PO SCH (09:01)
[2019-08-08] MEDS: ATENOLOL 50 MG TABLET PO SCH (09:01)
[2019-08-08] MEDS: MULTIVITAMIN TAB PO SCH (09:01)
[2019-08-08] MEDS: EZETIMIBE 10 MG TABLET PO SCH (09:02)
[2019-08-08] MEDS: ARTIFICIAL TEARS OP SCH (09:02)
[2019-08-08] MEDS: EUCERIN CR 120 GM JAR TOP SCH (09:02)
[2019-08-08] MEDS: NYSTATIN/TRIAMCIN CR 15 GM TUBE EXT SCH (09:02)
[2019-08-08 11:36] VITALS: PULSE 74; O2SAT 93
--- NOTE | 2019-08-09 07:12 | Discharge Summary ---
Date of Service date of discharge: August 08, 2019 date of admission: 08-05-19 Admission HPI Per Admitting Provider Ms Palmer is a 74 year old female who complains of right ankle pain, She states that the symptoms have been acute traumatic and began on 07/29/2019. She indicates the injury occurred at [facility] after sustaining a fall. Currently the patient states that the symptoms are mild-moderate. The pain is described as aching and sometimes sharp. The symptoms occur continuously. The patient is experiencing pain in the following location: GLOBAL ANKLE on the right side. She rates her current pain as 5/10. PATIENT INDICATED THAT SHE FELL AT [facility], PATIENT WENT TO [facility] SAME DAY, PLACED IN SPLINT. PATIENT IS NWB IN POSTERIOR SPLINT. 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 Principal Diagnosis Bimalleolar fracture Right ankle Discharge Exam Vital Signs Temp 37.2 C 08/08/19 07:50 Pulse 74 08/08/19 11:29 Resp 18 08/08/19 11:29 BP 147/73 H 08/08/19 07:50 Pulse Ox 93 08/08/19 11:29 Intake & Output 08/08/19 08/09/19 08/09/19 18:59 06:59 18:59 Weight 65.317 kg Constitutional WD/WN, vitals as above no acute distress Musculoskeletal right ankle- splinted, NVDI. able to wiggle toes, sensation intact to light touch Discharge Data Allergies Allergy/AdvReac Type Severity Reaction Status Date / Time aspirin Allergy Intermediate Rash Verified 08/05/19 09:14 codeine Allergy Intermediate Rash Verified 08/05/19 09:14 simvastatin Allergy Intermediate Rash Verified 08/05/19 09:14 morphine Allergy Mild Nausea Verified 08/05/19 09:14 blueberry Allergy Unknown Unknown Verified 08/05/19 09:14 strawberry Allergy Unknown Unknown Verified 08/05/19 09:14 Consultations 08/05/19 12:40 Consult Hospitalist Routine 08/05/19 14:02 Consult Case Management - Discharge Planning Routine Procedures Performed Operation Date: 08/05/19 11:50 Actual Procedures p Right Ankle Open Reduction Internal Fixation Bimalleolar Fracture(Right) - Vaughn Keenan DO Ordered Studies 08/05/19 05:00 US - OR guided needle placemen Routine 08/05/19 11:50 FL ankle RT 2V Routine FL fluoroscopy <1hr Routine Hospital Course (1) Bimalleolar ankle fracture: Postop day 3 status post ORIF right ankle fracture Plan is for her to return to her [facility] facility at 1:00 today Continue PT/OT nonweightbearing right lower extremity. DVT prophylaxis with warfarin Pain management with p.o. Tylenol and oxycodone Discharge planning-plan for transfer to [facility] (1) Bimalleolar ankle fracture: -Bimalleolar Fracture of Right Ankle s/p Right Ankle Open Reduction Internal Fixation Bimalleolar Fracture(Right) utilizing 7 hole one third tubular plate on the fibula to 4.0 cannulated screws on the medial malleolus by Dr. 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 -patient received radiation treatment on 08/06/2019 and 08/07/2019 -patient should continue outpatient treatment outpatient appointments 09/01/2019 1:30 [address] [facility] Department Radiology [address] (CT CHEST WO CONTRAST as a 6 month followup) 09/07/2019 8:30 AM Provider Chair 7 Hem Onc [facility] 09/07/2019 9:15 AM Provider Sushil Appiah MD Department Hematology/Oncology [facility] 09/10/2019 9:00 AM Provider Mercedes Vilchis MD Department Otolaryngology/Head & Neck/Facial Plastic Surgery Total Time Total Time Spent Total Time Spent (In Minutes): 20 Total Time Includes: Examination of the Patient, Discharge Planning and Medication Reconciliation Discharge Plan Discharge Items Patient Disposition: Transfer [facility] Reason For Visit: Displaced Bimalleolar Fracture of Right Ankle Discharge Diagnosis: Displaced bimalleolar fracture of the right ankle Condition on Discharge: Good Activity: Per Instructions section Weightbearing: Right non-weightbearing Weightbearing Comment: Nonweightbearing right lower extremity with walker or crutches. Non-emergency contact: Surgeon Call non-emergency contact if: your pain is not controlled Follow-up/Referrals: [facility] [Primary Care Provider] - Diet: Other - See Diet Comment Diet Comment: Resume your regular diet Addtl Attending Provider Instructions: ACTIVITY RECOMMENDATIONS: Limitations: No weight bearing to affected limb at all times. SPECIAL CARE INSTRUCTIONS: * Some drainage onto the dressing is normal and is no cause for alarm. * Some swelling is natural especially after walking. * When resting, keep your foot elevated above the level of your heart. * Call [facility] if you notice: -Increased drainage -Fever over 101 degrees F -Severe constant pain BANDAGE: * Leave bandage/cast in place unless otherwise directed. * Keep bandage/cast dry at all times. If appointment is not already scheduled: Please call [facility] after you get home today to schedule a follow-up appointment for [address] Keenan at . [employer]tl [employer] Provider Instructions: prescription of daily magnesium supplements prescribed when patient is discharged to [facility], patient should have repeat serum potassium and serum magnesium labs checked in 1 week outpatient appointments 09/01/2019 1:[address] [facility] Department Radiology [address] (CT CHEST WO CONTRAST as a 6 month followup) 09/07/2019 8:30 AM Provider Chair 7 Hem Onc [facility] Department Hematology/Oncology Treatment, [place] 09/07/2019 9:15 AM Provider Sushil Appiah MD Department Hematolog y/Oncology [facility] 09/10/2019 9:00 AM Provider Mercedes Vilchis MD Department Otolaryngology/Head & Neck/Facial Plastic Surgery Pending Studies at Discharge: No Stand-Alone Forms: My [facility] Skilled Items Patient informed of condition?: Yes DNR: Yes Discharge Level of Care: Skilled Communicable Disease: No Discharge Prognosis: Stable Lines: None Urinary Catheter: No Medications and DC Order Prescriptions: New oxycodone 5 mg Tablet 5 - 10 mg PO Q6H PRN (Reason: pain) Qty: 30 RF: 0 magnesium oxide 400 mg (241.3 mg magnesium) Tablet 400 mg PO DAILY 15 Days Qty: 15 RF: 0 Continued bisacodyl 10 mg suppository 10 mg [place] DAILY PRN (Reason: Constipation) RF: 0 hydrochlorothiazide 12.5 mg capsule 12.5 mg PO DAILY RF: 0 ipratropium-albuterol 0.5 mg-3 mg(2.5 mg base)/3 mL solution for nebulization 3 ml INH Q2H PRN (Reason: Shortness Of Breath Or Wheezing) RF: 0 ketoconazole 2 % shampoo 1 appln TOP 2XWK RF: 0 melatonin 3 mg capsule 3 mg PO HS RF: 0 magnesium hydroxide [Milk of Magnesia] 400 mg/5 mL suspension 30 ml PO DAILY PRN (Reason: constipation) RF: 0 ezetimibe [Zetia] 10 mg tablet 10 mg PO DAILY RF: 0 acetaminophen [Acetaminophen Pain Relief] 500 mg tablet 1,000 mg PO TID RF: 0 artifi.tears(hypromellose)(PF) 0.3 % drops 2 drops OP BID RF: 0 desonide 0.05 % ointment 1 appln TOP BID PRN (Reason: Rash) RF: 0 Eucerin Cream 1 appln TOP .Sat RF: 0 nystatin-triamcinolone 100,000-0.1 unit/g-% cream 1 appln TOP BID RF: 0 magnesium oxide 400 mg magnesium tablet 400 mg PO BID RF: 0 cholecalciferol (vitamin D3) [Vitamin D3] 1,000 unit Tablet,Chewable 400 unit PO DAILY RF: 0 atenolol 100 mg Tablet 100 mg PO DAILY RF: 0 Preparation H 0.25-14-74.9 % Ointment 1 applic IL AMHS PRN (Reason: Hemorrhoids) RF: 0 ipratropium-albuterol 0.5 mg-3 mg(2.5 mg base)/3 mL solution for nebulization 3 ml INHALATION QID RF: 0 warfarin 4 mg Tablet 4 mg PO DAILY RF: 0 Maalox Maximum Strength 400-400-40 mg/5 mL Suspension 7.5 ml PO QID RF: 0 Fleet Enema Extra 19-7 gram/197 mL Enema 118 ml [place] DAILY PRN (Reason: Constipation) RF: 0 heparin flush(porcine)-0.9NaCl 1 unit IV UD RF: 0 Discontinued oxycodone 5 mg tablet 5 mg PO Q4H PRN (Reason: pain) RF: 0 cefdinir 300 mg capsule 300 mg PO BID RF: 0 Discharge Orders: Discharge Order (Routine); Ordered 08/08/19 Ordered By: Rupert Mcdermott Admission Data Admit Date/Time: 08/05/19 12:32 Attending Provider: Vaughn Keenan Admit Provider: Vaughn Keenan Primary Care Provider: Ailyn No Other Providers: Trev Frank ; Sridevi Jerry ; Adore Srinivasan ; Sherry Ennis ; Margo Noland ; Malia Barajas ; Long Bledsoe ; Nguyễn Santos ; Dejuan Joy ; Celeste Ornelas ; Jelly Read ; Rayna Palomares ; Bret Fabian ; Chris Burton ; Gayle Weaver ; Pito Holden ; Giovanna Escalante ; Chris Castillo ; Katy Adams ; Sushil James ; Keshia Batres I. ; Augusto Peralta ; Dominic Gonzalez Other Interventions: Discharge Summary Assessment (RN) Last Done: 08/08/19 09:54 DC Date/Time DO NOT enter until pt leaves facility: 08/08/19 14:41
== END 2019-08-08 14:41 | DRG 493 ==
LOC: ASU 08:52 → 3E 12:32